=== PATIENT | female | born 1970 | race Hispanic/Latino ===

== ENCOUNTER 2016-07-29 10:57 | Observation (INO) | payer MEDICAID ==
[2016-07-29 11:23] VITALS: O2SAT 98; BMI 29.2
[2016-07-29 12:19] LABS: ADD MANUAL DIFF? NO
--- NOTE | 2016-07-29 12:22 | ED PDOC ---
Arrival/HPI - General Chief Complaint: Lower Extremity Problem/Injury Time Seen by Provider: 07/29/16 11:36 Historian: Patient - History of Present Illness Narrative History of Present Illness (Text): 07/29/16 11:56 Patient is a 45 year old female whose past medical history includes pinched nerve in the neck, presenting to the emergency department with bilateral lower extremity pain and weakness for the past few days. She states she has had difficulty walking. Patient also reports worsening neck pain and headache. Denies back pain, urinary or bowel changes, chest pain, shortness of breath, or other complaints. Time/Duration: < week Symptom Onset: Gradual Symptom Course: Unchanged Modifying Factors (Text): None Associated Symptoms (Text): None Past Medical History - Provider Review Nursing Documentation Reviewed: Yes - Infectious Disease Hx of Infectious Diseases: None - Tetanus Immunization Tetanus Immunization: Unknown - Past Medical History Past Medical History: No Previous - Cardiac Hx Cardiac Disorders: Yes Hx Hypertension: Yes - Pulmonary Hx Respiratory Disorders: Yes Hx Asthma: Yes - Neurological Hx Neurological Disorder: Yes Other/Comment: "nerve damage to neck" - HEENT Hx HEENT Disorder: No - Renal Hx Renal Disorder: No - Endocrine/Metabolic Hx Endocrine Disorders: Yes Hx Diabetes Mellitus Type 2: Yes - Hematological/Oncological Hx Blood Disorders: No - Integumentary Hx Dermatological Disorder: No - Musculoskeletal/Rheumatological Hx Musculoskeletal Disorders: Yes Hx Arthritis: Yes - Gastrointestinal Hx Gastrointestinal Disorders: No - Genitourinary/Gynecological Hx Genitourinary Disorders: No - Psychiatric Hx Psychophysiologic Disorder: No Hx Substance Use: No - Past Surgical History Past Surgical History: No Previous - Surgical History Hx Section: Yes (x2) - Anesthesia Hx Anesthesia: Yes Hx Anesthesia Reactions: No Hx Malignant Hyperthermia: No - Suicidal Assessment Feels Threatened In Home Enviroment: No Family/Social History - Physician Review Nursing Documentation Reviewed: Yes Family/Social History: Unknown Family HX Smoking Status: Light Smoker < 10 Cigarettes Daily Hx Alcohol Use: No Hx Substance Use: No Hx Substance Use Treatment: No Allergies/Home Meds Allergies/Adverse Reactions: Allergies No Known Allergies Allergy (Verified 07/29/16 11:08) Home Medications: Home Meds Medication Instructions Recorded Confirmed Valsartan [Diovan] 320 mg PO DAILY 10/22/13 07/29/16 Zolpidem Tartrate [Ambien] 10 mg PO PRN PRN 03/20/14 07/29/16 metFORMIN ER [glucoPHAGE XR] 500 mg PO DAILY 03/20/14 07/29/16 oxyCODONE/Acetaminophen [Percocet 2 tab PO Q4 11/20/15 07/29/16 5/325 mg Tab] Albuterol HFA [Ventolin HFA 90 1 puff IH PRN PRN 07/29/16 07/29/16 mcg/actuation (8 g)] Review of Systems - Review of Systems Eyes: absent: Vision Changes ENT: absent: Hearing Changes Respiratory: absent: SOB Cardiovascular: absent: Chest Pain Gastrointestinal: absent: Abdominal Pain Genitourinary Female: absent: Dysuria, Frequency, Hematuria Musculoskeletal: Neck Pain (hx pinched nerve), Other (bilateral leg pain). absent: Back Pain Skin: absent: Rash Neurological: Headache, Gait Changes. absent: Dizziness, Facial Droop Endocrine: absent: Diaphoresis, Polydipsia Psychiatric: absent: Depression Physical Exam - Physical Exam Narrative Physical Exam (Text): Head: Atraumatic. Normocephalic. Eyes: PERRL. EOMI. Conjunctivae are not pale. ENT: Mucous membranes are moist and intact. Oropharynx is clear and symmetric. Neck: Supple. There is some pain with rotation of neck, with left sided paracervical spasm noted, no masses palpated, no carotid bruits, able to flex and extend. Cardiovascular: Regular rate. Regular rhythm. No murmurs, rubs, or gallops. Distal pulses are 2+ and symmetric in the lower extremities. Pulmonary/Chest: No evidence of respiratory distress. Clear to auscultation bilaterally. No wheezing, rales or rhonchi. Abdominal: Soft and non-distended. There is no tenderness. No rebound, guarding, or rigidity. No organomegaly. Good bowel sounds. No pulsatile masses. Abdominal wall with soft mobile mass palpated, nontender, nonerythematous. Back: No CVA tenderness. No lower lumbar pain or paraspinal tenderness. No back pain with straight leg testing. Extremities: No edema. No cyanosis. No clubbing. Full range of motion in all extremities. No calf tenderness. Distal pulses intact. There is pain on palpation of bilateral thighs but no edema or erythema. Skin: Skin is warm and dry. No petechiae. No purpura. Neurological: Alert, awake, and oriented. Patient is able to ambulated, but has bilateral drift noted in both lower extremities, unable to hold leg up off of bed for 5 seconds without drifting. No saddle anesthesia. Reflexes symmetic and intact. Psychiatric: Good eye contact. Normal interaction, affect, and behavior. Vital Signs Reviewed: Yes Vital Signs Temp Pulse Resp BP Pulse Ox 07/29/16 15:35 89 18 145/89 98 07/29/16 11:08 99.2 F 95 H 16 148/92 H 98 Temperature: Afebrile Blood Pressure: Normal Pulse: Regular Respiratory Rate: Normal Appearance: Positive for: Well-Appearing, Non-Toxic, Uncomfortable Pain Distress: Mild Mental Status: Positive for: Alert and Oriented X 3 Finger Stick Blood Glucose: 193 Medical Decision Making ED Course and Treatment: Plan: Will obtain CT's of the head and neck, ultrasound of the lower extremities, check basic labs. Prior Visits: Notes and results from previous visits were reviewed. Patient last seen in the ED on 11/20/15 for body aches, cough, congestion, and discharged home. Progress Notes: Patient is noted to have complaints of pain and weakness to legs, although no midline back pain, no fever, no meningeal signs. She has pain to her neck but denies trauma or change in character of pain. There is no weakness noted to the upper extremities. She reports a chronic numbness to her left shoulder for several months, not worse. Lower extremities have intact distal pulses. CPK is unremarkable and there is no muscle erythema or edema. On exam she has no saddle anesthesia, at times there is fine tremor with movement of the lower extremieties but at rest she is able to flex and extend at hip and knee and ankle with good strength and is neurologically intact at rest. PROCEDURE: CT HEAD WITHOUT CONTRAST. Body Welder : Martin Barlow MD Report Date : 07/29/2016 12:32:58 IMPRESSION: Normal CT of the Head. PROCEDURE: CT Cervical Spine without contrast Body Welder : Helena Celis V. Report Date : 07/29/2016 12:51:46 IMPRESSION: Left apophyseal joint hypertrophy encroaching on the left C2-3 and left C3-4 foramina C4-5, C5-6 and C6-7 posterior diffuse disc bulging -no suspect central stenosis. Cervical spine straightening -consistent with spasm and/or positioning. Well corticated ossifications bordering the elongated dens -incomplete inclusion /fusion of ossifications centers bleed most likely. Tiny remote old osseous avulsions are another consideration. No acute fractures or acute destructive lesions noted Bilateral ossifications stylohyoid ligaments as above US Lower Extremities Body Welder : Danny Monge MD Report Date : 07/29/2016 14:36:58 IMPRESSION: No sonographic evidence for deep venous thrombosis in the visualized segments of both lower extremities. Pain medication administered with no improvement, will admit for observation and neurologic consultation to evaluate for possible central etiology of symptoms, currently no abdominal pulsatile masses or incarcerated hernias, no incontinence of urine or stool, afebrile. Treatment plan reviewed with patient and PMD Dr. Rodriguez. 07/29/16 16:48 - Lab Interpretations Lab Results: 07/29/16 12:00 07/29/16 12:00 Lab Results 07/29/16 12:00: Urine Color Yellow, Urine Appearance Clear, Urine pH 5.5, Ur Specific Bolt >= 1.030, Urine Protein Negative, Urine Glucose (UA) 100 H, Urine Ketones Negative, Urine Blood Negative, Urine Nitrate Negative, Urine Bilirubin Negative, Urine Urobilinogen 0.2, Ur Leukocyte Esterase Negative 07/29/16 12:00: PT 10.3, INR 0.95, APTT 28.1 07/29/16 12:00: Sodium 136, Potassium 3.8, Chloride 102, Carbon Dioxide 22, Anion Gap 16, BUN 10, Creatinine 0.6, Est GFR ( Amer) > 60, Est GFR (Non- Af Amer) > 60, Random Glucose 190 H, Calcium 9.5, Total Bilirubin 0.6, AST 24, ALT 28, Alkaline Phosphatase 48, Lactate Dehydrogenase 352, Total Creatine Kinase 76, Troponin I < 0.01, Total Protein 8.2, Albumin 4.7, Globulin 3.5, Albumin/Globulin Ratio 1.3 07/29/16 12:00: WBC 8.6 D, RBC 4.29, Hgb 13.4, Hct 39.5, MCV 92.1, MCH 31.2, MCHC 33.9, RDW 13.4, Plt Count 228, MPV 12.4 H, Gran % 69.9 H, Lymph % (Auto) 23.0, [place] % (Auto) 5.5, Eos % (Auto) 1.2 L, Baso % (Auto) 0.4, Gran # 6.00, Lymph # 2.0, [place] # 0.5, Eos # 0.1, Baso # 0.03 - RAD Interpretation Radiology Orders: 07/29/16 11:45 CERVICAL SPINE W/O CONTRAST [CT] Stat HEAD W/O CONTRAST [CT] Stat 07/29/16 12:04 DUPLEX LOWER EXTRM VEIN BILAT [US] Stat - Medication Orders Current Medication Orders: Discontinued Medications Oxycodone/Acetaminophen (Percocet 5/325 Mg Tab) 1 tab PO STAT STA Stop: 07/29/16 15:09 Last Admin: 07/29/16 15:34 Dose: 1 tab - Scribe Statement The provider has reviewed the documentation as recorded by the Jason Walker Provider Scribe Attestation: All medical record entries made by the Jagdishibcirilo were at my direction and personally dictated by me. I have reviewed the chart and agree that the record accurately reflects my personal performance of the history, physical exam, medical decision making, and the department course for this patient. I have also personally directed, reviewed, and agree with the discharge instructions and disposition. Disposition/Present on Arrival - Present on Arrival Any Indicators Present on Arrival: No History of DVT/PE: No History of Uncontrolled Diabetes: No Urinary Catheter: No History of Decub. Ulcer: No History Surgical Site Infection Following: None - Disposition Have Diagnosis and Disposition been Completed?: Yes Diagnosis: Leg pain, Leg weakness Disposition: HOSPITALIZED Disposition Time: 14:00 Patient Plan: Admission, Observation Condition: FAIR Referrals: Reji Rodriguez MD [Primary Care Provider] - Follow up with primary
[2016-07-29 12:24] LABS: BASO # 0.03 K/mm3 (0.0-2.0); BASO % 0.4 % (0.0-3.0); EOS # 0.1 (0.0-0.7); EOS % 1.2 % (1.5-5.0); GRAN % 69.9 % (50.0-68.0); HEMATOCRIT 39.5 % (36.0-48.0); MEAN CELL VOLUME 92.1 fL (80.0-105.0); MEAN CORPUSCULAR HEMOGLOBIN 31.2 pg (25.0-35.0); MEAN CORPUSCULAR HGB CONC 33.9 g/dl (31.0-37.0); MEAN PLATELET VOLUME 12.4 fl (7.0-11.0); MONO # 0.5 (0.1-0.6); MONO % 5.5 % (1.0-6.0); PLATELET COUNT 228 10^3/uL (120.0-450.0); RED CELL DISTRIBUTION WIDTH 13.4 % (11.5-14.5); WHITE BLOOD COUNT 8.6 10^3/ul (4.5-11.0)
[2016-07-29 12:25] LABS: PH,URINE 5.5 (4.7-8.0); URINE BILIRUBIN NEGATIVE (NEGATIVE); URINE BLOOD NEGATIVE (NEGATIVE); URINE GLUCOSE (UA) 100 mg/dL (NEGATIVE); URINE KETONE NEGATIVE (NEGATIVE); URINE LEUKOCYTE ESTERASE NEGATIVE Leu/uL (NEGATIVE); URINE PROTEIN NEGATIVE mg/dL (<30 mg/dL); URINE UROBILINOGEN 0.2 E.U./dL (<1 E.U./dL)
[2016-07-29 12:29] LABS: URINE APPEARANCE CLEAR (CLEAR); URINE COLOR YELLOW (YELLOW)
[2016-07-29 12:32] LABS: ALB/GLOB RATIO 1.3 (1.1-1.8); ALKALINE PHOSPHATASE 48 U/L (38-133); ALT/SGPT 28 U/L (7-56); AST/SGOT 24 U/L (15-39); BILIRUBIN,TOTAL 0.6 mg/dL (0.2-1.3); BLOOD UREA NITROGEN 10 mg/dL (7-21); CALCIUM 9.5 mg/dL (8.4-10.5); CARBON DIOXIDE 22 mmol/L (21-33); CHLORIDE 102 mmol/L (98-107); GFR AFRICAN-AMERICAN > 60; GLUCOSE,RANDOM 190 mg/dL (70-110); POTASSIUM 3.8 mmol/L (3.6-5.0); SODIUM 136 mmol/L (132-148); TOTAL PROTEIN 8.2 g/dL (5.8-8.3)
--- NOTE | 2016-07-29 12:34 | CT ---
PROCEDURE: CT HEAD WITHOUT CONTRAST. HISTORY: leg weakness COMPARISON: None available. TECHNIQUE: Axial computed tomography images were obtained through the head/brain without intravenous contrast. Radiation dose: Total exam DLP = 700 mGy-cm. This CT exam was performed using one or more of the following dose reduction techniques: Automated exposure control, adjustment of the mA and/or kV according to patient size, and/or use of iterative reconstruction technique. FINDINGS: HEMORRHAGE: No intracranial hemorrhage. BRAIN: No mass effect or edema. No atrophy or chronic microvascular ischemic changes. VENTRICLES: Unremarkable. No hydrocephalus. CALVARIUM: Unremarkable. PARANASAL SINUSES: Unremarkable as visualized. No significant inflammatory changes. MASTOID AIR CELLS: Unremarkable as visualized. No inflammatory changes. OTHER FINDINGS: None. IMPRESSION: Normal CT of the Head.
[2016-07-29 12:36] LABS: INR 0.95 (0.93-1.08); PARTIAL THROMBOPLASTIN TIME 28.1 Seconds (23.7-30.8)
[2016-07-29 12:46] LABS: TROPONIN I < 0.01 ng/mL
--- NOTE | 2016-07-29 12:53 | CT ---
PROCEDURE: CT Cervical Spine without contrast HISTORY: <neck pain, leg weakness> COMPARISON: None available. TECHNIQUE: Axial computed tomography images were obtained of the cervical spine without the use of intravenous contrast. Coronal and sagittal reformatted images were created and reviewed. Radiation dose: Total exam DLP = 641 mGy-cm. This CT exam was performed using one or more of the following dose reduction techniques: Automated exposure control, adjustment of the mA and/or kV according to patient size, and/or use of iterative reconstruction technique. FINDINGS: VERTEBRAE: No fracture. Straightening of the normal cervical lordosis noted. No destructive bony lesion. Well corticated ossifications at the dens tip probably relate fused small ossification centers. There are some associated sclerotic changes of the dense here noted. Conceivably old dens tip avulsions are not excluded these are believe however less likely. DISCS/SPINAL CANAL/NEURAL FORAMINA: No significant central canal stenosis. Left C2-3 and left C3-4 foraminal encroachment by left apophyseal joint osseous hypertrophic arthrosis. . Discs heights are grossly preserved. PARASPINAL SOFT TISSUES: Mild diffuse posterior disc bulging C4-5 and C5-6 and C6-7. Shotty benign-appearing bilateral cervical lymph nodes. No suspicious lymphadenopathy OTHER FINDINGS: Bilateral ossification/ calcification of the stylohyoid ligaments left greater than right -this can be seen with [place] syndrome IMPRESSION: Left apophyseal joint hypertrophy encroaching on the left C2-3 and left C3-4 foramina C4-5, C5-6 and C6-7 posterior diffuse disc bulging -no suspect central stenosis. Cervical spine straightening -consistent with spasm and/or positioning. Well corticated ossifications bordering the elongated dens -incomplete inclusion/fusion of ossifications centers bleed most likely. Tiny remote old osseous avulsions are another consideration. No acute fractures or acute destructive lesions noted Bilateral ossifications stylohyoid ligaments as above
--- NOTE | 2016-07-29 14:38 | US ---
HISTORY: Leg pain and swelling. Evaluate for DVT PHYSICIAN(S): Danny Mcgraw MD. TECHNIQUE: Duplex sonography and color-flow Doppler with graded compression were used to evaluate the deep venous systems of both lower extremities. FINDINGS: The visualized deep venous systems of both lower extremities are sonographically normal and compressible. Normal wave forms and augmentation are seen. There is no sonographic evidence for deep venous thrombosis in the visualized segments of both lower extremities. IMPRESSION: No sonographic evidence for deep venous thrombosis in the visualized segments of both lower extremities.
[2016-07-29] MEDS ORDERED: Oxycodone/Acetaminophen 5/325 mg Tab PO STA (15:08)
[2016-07-29 15:35] VITALS: RESP 18
[2016-07-29 16:44] VITALS: BP 143/79
[2016-07-29] MEDS ORDERED: Oxycodone/Acetaminophen 5/325 mg Tab PO PRN (17:53)
[2016-07-29 18:42] VITALS: TEMP 98.3
[2016-07-29] MEDS ORDERED: Arformoterol 15 mcg/2 ml Inh Sol IH SCH (20:00)
[2016-07-29] MEDS: Budesonide 0.25 mg/2 ml Inhal Susp UD IH SCH (20:12)
[2016-07-29] MEDS: Arformoterol 15 mcg/2 ml Inh Sol IH SCH (20:12)
[2016-07-29 20:13] VITALS: PULSE 80
[2016-07-29] MEDS ORDERED: Pneumococcal 23-Valent Vaccine IM ONE (21:56)
[2016-07-29] MEDS ORDERED: Insulin Reg-LOW-Coverage SC SCH (22:00)
--- NOTE | 2016-07-30 15:05 | MRI ---
PROCEDURE: MR LUMBAR SPINE WITHOUT CONTRAST HISTORY: MRI Lumbar sacral w/o contrast BL leg pain COMPARISON: None available. TECHNIQUE: Multiecho multiplanar sequences were performed through the lumbar spine without the use of intravenous contrast. FINDINGS: Normal lumbar lordosis. Vertebral body heights are preserved. Marrow signal unremarkable. Conus medullaris unremarkable at the level of L1 Paraspinal soft tissues are unremarkable. T12-L1: No disc herniation, spinal canal stenosis or neural foraminal narrowing. L1-2: No disc herniation, spinal canal stenosis or neural foraminal narrowing. L2-3: No disc herniation, spinal canal stenosis or neural foraminal narrowing. L3-4: No disc herniation, spinal canal stenosis or neural foraminal narrowing. L4-5: Moderate facet arthropathy L5-S1: There is a moderate disc bulge with bilateral foraminal stenosis. There is also a small to moderate central disc protrusion seen best on image 8 series 6. OTHER FINDINGS: There is a transitional S1 segment that is partially lumbarized with a small disc space between S1 and S2 IMPRESSION: Moderate disc bulge with bilateral foraminal stenosis and small to moderate central disc protrusion at L5-S1. Moderate facet arthropathy at L4-5
[2016-07-30] MEDS: Arformoterol 15 mcg/2 ml Inh Sol IH SCH (21:02)
[2016-07-30] MEDS: Budesonide 0.25 mg/2 ml Inhal Susp UD IH SCH (21:03)
[2016-07-31 04:51] LABS: ALB/GLOB RATIO 1.2 (1.1-1.8); ALKALINE PHOSPHATASE 51 U/L (38-133); ALT/SGPT 28 U/L (7-56); AST/SGOT 66 U/L (15-39); BLOOD UREA NITROGEN 14 mg/dL (7-21); CALCIUM 9.4 mg/dL (8.4-10.5); CARBON DIOXIDE 25 mmol/L (21-33); CHLORIDE 101 mmol/L (98-107); GFR AFRICAN-AMERICAN > 60; GLUCOSE,RANDOM 107 mg/dL (70-110); POTASSIUM 3.9 mmol/L (3.6-5.0); SODIUM 138 mmol/L (132-148); TOTAL PROTEIN 7.7 g/dL (5.8-8.3)
--- NOTE | 2016-07-31 08:16 | HP ---
MAIN COMPLAINT: A 45-year-old female with history of diabetes, hypertension, chronic neck pain, came into the hospital because of bilateral leg lower extremity pain and weakness for the past few days. She also mentioned she has difficulty walking. She also complained of worsening neck pain and heada ches. HISTORY OF PRESENT ILLNESS: As I mentioned above. Complains of neck pain; back discomfort; lower ex tremity pain, mainly, and associated with bilateral leg weakness. The patient is able to walk around ; however, she did have some pain in both lower extremities and weakness, and that is why she came in to the Emergency Room for further evaluation. The patient does have chronic neck pain. She had an e xcision in the past. PAST MEDICAL HISTORY: Diabetes, hypertension, hypercholesterolemia, chronic neck pain, and neck surg kerry in the past. She does have COPD. ALLERGIES: No known allergies. MEDICATIONS: She does take Ventolin. She takes oxycodone 2 tabs every 4. She takes metformin. She takes Ambien, Diovan 320, and Tessalon Perles SOCIAL HISTORY: The patient does smoke 5-10 cigarettes a day. No alcohol. No other substance abuse . REVIEW OF SYSTEMS: Chronic neck pain, wheezing, cough, short of breath occasionally. PHYSICAL EXAMINATION: VITAL SIGNS: Temperature 98.3, heart rate 76, blood pressure 164/92, respirations 18, saturation 98% on room air. HEAD AND NECK: Normal. No JVD. No thyromegaly. There is a scar in the neck area. CHEST: Clear, good entry. CARDIAC: 1st sound, 2nd sound normal. ABDOMEN: Soft, obese, nontender. EXTREMITIES: There is no edema, and it seems there are no focal deficits; however, there is some mil d difference in power in the right than the , but the patient is able to move both legs. LABORATORY DATA: When the patient came in: White count 8.6, hemoglobin 16.4, hematocrit 39.5, plate lets 228. Chemistry shows sodium 136, potassium 3.8, chloride 102, bicarbonate 22, BUN 10, creatinin e 0.6, blood sugar 190. Liver function test is normal. Troponin is negative. The patient had also CT of the neck when she came in and is noted for hypertrophy of the joint encroaching on the le ft C2-C3 and C3-C4 foramina, also C4-C5 and C6 and C7 there is diffuse disk bulging and the rest of t he cervical spine is straightening, consistent with spasms. Also ossification of the styloid ligamen ts bilaterally. The patient also had a CT of the head, which shows normal CAT scan of the head. IMPRESSION AND PLAN: This is a 45-year-old female with diabetes, hypertension, who came in with weak ness in both lower extremities, seems clinically stable. We will admit the patient. We will get a n euro consult with Dr. Watson. We will review the CT with him. Also, we will get an MRI of the lower extremities and resume all her medications. We will put the patient for observation and will follow up clinically. Reji Rodriguez MD cc: 223 TT: 07/31/2016 00:16:52 tn
--- NOTE | 2016-07-31 08:17 | DS ---
HISTORY OF PRESENT ILLNESS: The patient was admitted for lower extremity weakness. She was maintain ed on her medicines, neuro consult, Dr. Watson. She was consulted to see the patient. The patient w as maintained on her medications; however, she did have an MRI of her lower extremities, which showed moderate disk bulge with bilateral foraminal stenosis, small to moderate central disk protrusion of L5-S1. Moderate facet arthropathy at L4 and L5. The patient also, while in the hospital, she had a venous Doppler of lower extremity, which was negative. PHYSICAL EXAMINATION: GENERAL: The patient was seen today, 07/30/2016 and she was hemodynamically stable, afebrile. VITAL SIGNS: Temperature 98, heart rate 80, blood pressure 140/79, respirations 18, saturation 98%. HEAD AND NECK: There was some decreased range of motion and neck. CHEST: Clear, good entry. CARDIAC: First sound and second sound normal. ABDOMEN: Soft, obese, nontender. EXTREMITIES: No edema. NEUROLOGIC: The patient seems normal. DISCHARGE DIAGNOSES: 1. Bilateral leg pains, etiology unclear. 2. Chronic back pain, chronic with facet arthropathy and disk bulging, which is affecting the L5-S1. 3. Chronic neck pain with joint arthropathy, causing foraminal stenosis. 4. Hypertension. 5. Diabetes type 2. 6. Hypercholesterolemia. 7. Obesity. 8. Chronic insomnia. PLAN: Explained to the patient that she needed to see the neurosurgeon for evaluation and recommenda tions. However, the patient signed against medical advice before seen by a neurologist. She should follow up in office within a week. Reji Rodriguez MD cc: 223 TT: 07/31/2016 02:58:17 tam
[2016-07-31 16:16] LABS: HEMATOCRIT 39.1 % (36.0-48.0); MEAN CELL VOLUME 93.5 fL (80.0-105.0); MEAN CORPUSCULAR HEMOGLOBIN 30.6 pg (25.0-35.0); MEAN CORPUSCULAR HGB CONC 32.7 g/dl (31.0-37.0); MEAN PLATELET VOLUME 12.8 fl (7.0-11.0); RED CELL DISTRIBUTION WIDTH 13.6 % (11.5-14.5); WHITE BLOOD COUNT 7.1 10^3/ul (4.5-11.0)
== END 2016-07-30 15:30 | disposition left against medical advice (07) ==
LOC: ED 10:57 → ERH 15:30 → 3RSO 17:34
PROVIDERS: ADMIT Internal Medicine; ATTEND Internal Medicine
DX: M79.604 Pain in right leg (principal); M79.605 Pain in left leg; M54.9 Dorsalgia, unspecified; M12.9 Arthropathy, unspecified; M54.2 Cervicalgia; I10 Essential (primary) hypertension; E11.9 Type 2 diabetes mellitus without complications; E78.00 Pure hypercholesterolemia, unspecified; E66.9 Obesity, unspecified; D64.9 Anemia, unspecified; F51.04 Psychophysiologic insomnia; F17.210 Nicotine dependence, cigarettes, uncomplicated; J44.9 Chronic obstructive pulmonary disease, unspecified; M46.90 Unspecified inflammatory spondylopathy, site unspecified; M48.00 Spinal stenosis, site unspecified; M51.27 Other intervertebral disc displacement, lumbosacral region
CPT/HCPCS: 36415; 70450; 72125; 72148; 80053; 81003; 82550; 82948; 83615; 84484; 85025; 85027; 85610; 85730; 93970; 94640; 99285; G0378

== ENCOUNTER 2016-11-16 07:14 | Emergency (ER) | payer MEDICAID ==
[2016-11-16 07:29] VITALS: RESP 18; TEMP 98.2; O2SAT 100; BMI 28.5
--- NOTE | 2016-11-16 08:09 | ED PDOC ---
Arrival/HPI - General Chief Complaint: Upper Extremity Problem/Injury Time Seen by Provider: 11/16/16 07:17 - History of Present Illness Narrative History of Present Illness (Text): 11/16/16 07:56 46 year female presents to the emergency room with right anterior forearm numbness. The patient states that she noticed her right anterior forearm feeling tight 4 to 5 days ago. She was attempting to straighten her arm when her muscles felt extremely tight. She states that she felt numbness in the center of her anterior forearm with some tingling in her right hand. Patient states that this has never happened to her before but she was recently in the hospital in July 2016 when it was found that she had 3 bulging discs in her neck. The patient states that her doctors wanted her to have surgery to correct the bulging discs, but she left AMA because of a family emergency with her daughter. The patient states that she takes "percocet 10s" for the pain in her neck which helps with everything. Nothing makes the numbness any better. She feels increased tightness in her anterior forearm when she extends her elbow completely. She denies any recent trauma. Denies f/c, n/v, d/c, sob, cp, lightheadedness, dizziness, blurred vision, double vision, swelling or weakness. (Coco,Ethan) Past Medical History - Provider Review Nursing Documentation Reviewed: Yes - Infectious Disease Hx of Infectious Diseases: None - Tetanus Immunization Tetanus Immunization: Unknown - Past Medical History Past Medical History: No Previous - Cardiac Hx Cardiac Disorders: Yes Hx Hypertension: Yes - Pulmonary Hx Respiratory Disorders: Yes (SMOKED CIGARETTES 4 /D) Hx Asthma: Yes - Neurological Hx Neurological Disorder: Yes (PINCHED NERVE) Other/Comment: "nerve damage to neck" - HEENT Hx HEENT Disorder: Yes Other/Comment: BILATERAL EAR SURGERY - Renal Hx Renal Disorder: No - Endocrine/Metabolic Hx Endocrine Disorders: Yes Hx Diabetes Mellitus Type 2: Yes - Hematological/Oncological Hx Blood Disorders: No - Integumentary Hx Dermatological Disorder: No - Musculoskeletal/Rheumatological Hx Musculoskeletal Disorders: Yes Hx Arthritis: Yes Hx Back Pain: Yes Hx Falls: No Hx Unsteady Gait: Yes Other/Comment: SCIATICA. 3 bulging disks in neck - Gastrointestinal Hx Gastrointestinal Disorders: No - Genitourinary/Gynecological Hx Genitourinary Disorders: Yes (FIBROID UTERUS) Other/Comment: C SECTION X 2 - Psychiatric Hx Psychophysiologic Disorder: No Hx Substance Use: No - Past Surgical History Past Surgical History: No Previous - Surgical History Other/Comment: C SECTION X 2. - Anesthesia Hx Anesthesia: Yes Hx Anesthesia Reactions: No Hx Malignant Hyperthermia: No - Suicidal Assessment Feels Threatened In Home Enviroment: No Family/Social History - Physician Review Nursing Documentation Reviewed: Yes Family/Social History: Unknown Family HX Smoking Status: Light Smoker < 10 Cigarettes Daily Hx Alcohol Use: No Hx Substance Use: No Hx Substance Use Treatment: No Allergies/Home Meds Allergies/Adverse Reactions: Allergies No Known Allergies Allergy (Verified 11/16/16 07:29) Home Medications: Home Meds Medication Instructions Recorded Confirmed Valsartan [Diovan] 320 mg PO DAILY 10/22/13 11/16/16 Zolpidem Tartrate [Ambien] 10 mg PO PRN PRN 03/20/14 11/16/16 metFORMIN ER [glucoPHAGE XR] 500 mg PO DAILY 03/20/14 11/16/16 oxyCODONE/Acetaminophen [Percocet 2 tab PO Q4 11/20/15 11/16/16 5/325 mg Tab] Albuterol HFA [Ventolin HFA 90 1 puff IH PRN PRN 07/29/16 11/16/16 mcg/actuation (8 g)] Gabapentin [Gralise] 300 mg PO TID 11/16/16 11/16/16 Review of Systems - Physician Review All systems were reviewed & negative as marked: Yes - Review of Systems Constitutional: Normal. absent: Fatigue, Fevers Eyes: Normal. absent: Vision Changes ENT: Normal. absent: Sore Throat, Rhinorrhea Respiratory: Normal, Cough (chronic cough (smoker)). absent: SOB, Wheezing Cardiovascular: Normal. absent: Chest Pain, Palpitations, Edema, Calf Pain, Syncope Gastrointestinal: Normal. absent: Abdominal Pain, Constipation, Diarrhea, Nausea, Vomiting Genitourinary Female: Normal. absent: Dysuria, Frequency Musculoskeletal: Other (right forearm tightness, numbness) Skin: Normal, Other (two scratches on her right hand from her kitten ). absent : Rash, Laceration Neurological: Other (numbness in right anterior forearm, some tingling in right hand). absent: Headache, Dizziness, Focal Weakness, Seizure Endocrine: Normal. absent: Diaphoresis Psychiatric: Normal Physical Exam Vital Signs Reviewed: Yes Temperature: Afebrile Blood Pressure: Hypertensive Pulse: Tachycardic (HR of 80 during exam) Respiratory Rate: Normal Appearance: Positive for: Well-Appearing, Non-Toxic, Comfortable Pain Distress: None Mental Status: Positive for: Alert and Oriented X 3 - Systems Exam Head: Present: Atraumatic, Normocephalic Extroacular Muscles: Present: EOMI Conjunctiva: Present: Normal Mouth: Present: Moist Mucous Membranes Nose (External): Present: Atraumatic Neck: Present: Normal Range of Motion, Trachea Midline. No: MIDLINE TENDERNESS , Paraspinal Tenderness, Lymphadenopathy Respiratory/Chest: Present: Clear to Auscultation. No: Respiratory Distress, Accessory Muscle Use, Wheezes, Rales, Rhonchi Cardiovascular: Present: Regular Rate and Rhythm, Normal S1, S2 Abdomen: Present: Normal Bowel Sounds. No: Tenderness, Distention, Peritoneal Signs Back: Present: Normal Inspection. No: CVA Tenderness, Midline Tenderness, Paraspinal Tenderness Upper Extremity: Present: Normal Inspection, Normal ROM, NORMAL PULSES, Neurovascularly Intact, Capillary Refill < 2s, Other (5/5 strength testing b/l. Patient reports decreased sensation to light touch in center of anterior forearm on right, but normal sensation to medial/laterial/posterier forearm on right. Equal sensation to light touch in hands b/l ). No: Cyanosis, Edema, Tenderness, Swelling, Erythema, Deformity Neurological: Present: GCS=15 Skin: Present: Warm, Dry, Normal Color, Other (2 scratches on right hand from cat (occurred 3 days ago) ). No: Diaphoretic, Hot, Cold, Laceration, Abscess Psychiatric: Present: Alert, Oriented x 3, Normal Insight, Normal Concentration Medical Decision Making ED Course and Treatment: 11/16/16 08:17 Right anterior forearm numbness - previous Cervical Neck CT on 07/29/2016 -Left apophyseal joint hypertrophy encroaching on the left C2-3 and left C3-4 foramina. C4-5, C5-6 and C6-7 posterior diffuse disc bulging -no suspect central stenosis. Cervical spine straightening -consistent with spasm and/or positioning. Well corticated ossifications bordering the elongated dens -incomplete inclusion/fusion of ossifications centers bleed most likely. Tiny remote old osseous avulsions are another consideration. No acute fractures or acute destructive lesions noted. Bilateral ossifications stylohyoid ligaments as above. - reassurance given, believed to be 2/2 known bulging discs in Cervical Spine. Patient is instructed to follow up with her PMD. Dispo: Home with no medications. Follow up with PMD. (Ethan Sepulveda) Seen and examined with resident. 46 y/o F p/w arm tightness with extension. Normal motor strength, FROM intact, sensation to light touch intact. (Alban Marie) Disposition/Present on Arrival - Present on Arrival Any Indicators Present on Arrival: No History of DVT/PE: No History of Uncontrolled Diabetes: No Urinary Catheter: No History of Decub. Ulcer: No History Surgical Site Infection Following: None - Disposition Have Diagnosis and Disposition been Completed?: Yes Disposition Time: 08:20 Patient Plan: Discharge - Disposition Diagnosis: Arm pain Diagnosis: (Ruled Out): Bulging discs, Cervical radiculopathy Disposition: HOME/ ROUTINE Condition: GOOD Discharge Instructions (ExitCare): Arm Pain (ED) Referrals: Reji Rodriguez MD [Primary Care Provider] - Follow up with primary Forms: Health: [employer] (Kazakh)
[2016-11-16 08:54] VITALS: BP 118/75; PULSE 77
== END 2016-11-16 08:53 | disposition home or self-care (01) ==
LOC: ED 07:14
DX: M79.601 Pain in right arm (principal)

== ENCOUNTER 2017-08-09 08:28 | Emergency (ER) | payer MEDICAID, OTHER ==
[2017-08-09 08:29] VITALS: BMI 28.5
[2017-08-09 08:48] VITALS: RESP 18; TEMP 99.2
[2017-08-09] MEDS ORDERED: Oxycodone/Acetaminophen 10/325 mg Tab PO STA (08:59)
--- NOTE | 2017-08-09 09:04 | ED PDOC ---
Arrival/HPI - General Chief Complaint: Back Pain Time Seen by Provider: 08/09/17 08:42 Historian: Patient - History of Present Illness Narrative History of Present Illness (Text): you were treated in the ED today for hx of chronic low back pain with MRI lumbar spine done 07/30/16 with moderate disc bulge with bilateral foraminal stenosis with small to moderate central disc protrusion Lumbar 5 - Sacral 1/ moderate facet arthropathy at lumbar 4-5 with recommendation for neurosurgery evaluation and now coming for recurrent pain flare-up which radiates down both lower legs but otherwise without any head injury/neck pain/loss of consciousness/nausea/vomiting/headache/dizziness/difficulty breathing/chest pain /abdomen pain/numbness/tingling/loss of limb or bowel or bladder function/pain with urination. Time/Duration: Other (2 days) Symptom Onset: Gradual Symptom Course: Intermittent Quality: Aching Severity Level: 4 Activities at Onset: Rest Context: Sitting Past Medical History - Provider Review Nursing Documentation Reviewed: Yes - Travel History Have you recently traveled outside [place] w/in the past 3 mons?: No - Infectious Disease Hx of Infectious Diseases: None - Tetanus Immunization Tetanus Immunization: Unknown - Reproductive Menopause: No - Past Medical History Past Medical History: No Previous - Cardiac Hx Cardiac Disorders: Yes Hx Hypertension: Yes - Pulmonary Hx Respiratory Disorders: Yes (SMOKED CIGARETTES 4 /D) Hx Asthma: Yes - Neurological Hx Neurological Disorder: Yes (PINCHED NERVE) Other/Comment: "nerve damage to neck" - HEENT Hx HEENT Disorder: Yes Other/Comment: BILATERAL EAR SURGERY - Renal Hx Renal Disorder: No - Endocrine/Metabolic Hx Endocrine Disorders: Yes Hx Diabetes Mellitus Type 2: Yes - Hematological/Oncological Hx Blood Disorders: No - Integumentary Hx Dermatological Disorder: No - Musculoskeletal/Rheumatological Hx Musculoskeletal Disorders: Yes Hx Arthritis: Yes Hx Back Pain: Yes Hx Falls: No Hx Unsteady Gait: Yes Other/Comment: SCIATICA. 3 bulging disks in neck - Gastrointestinal Hx Gastrointestinal Disorders: No - Genitourinary/Gynecological Hx Genitourinary Disorders: Yes (FIBROID UTERUS) Other/Comment: C SECTION X 2 - Psychiatric Hx Psychophysiologic Disorder: No Hx Substance Use: No - Past Surgical History Past Surgical History: No Previous - Surgical History Other/Comment: C SECTION X 2. - Anesthesia Hx Anesthesia: Yes Hx Anesthesia Reactions: No Hx Malignant Hyperthermia: No - Suicidal Assessment Feels Threatened In Home Enviroment: No Family/Social History - Physician Review Nursing Documentation Reviewed: Yes Family/Social History: Unknown Family HX Smoking Status: Light Smoker < 10 Cigarettes Daily Hx Alcohol Use: No Hx Substance Use: No Hx Substance Use Treatment: No Allergies/Home Meds Allergies/Adverse Reactions: Allergies No Known Allergies Allergy (Verified 11/16/16 07:29) Home Medications: Home Meds Medication Instructions Recorded Confirmed Valsartan [Diovan] 320 mg PO DAILY 10/22/13 11/16/16 Zolpidem Tartrate [Ambien] 10 mg PO PRN PRN 03/20/14 11/16/16 metFORMIN ER [glucoPHAGE XR] 500 mg PO DAILY 03/20/14 11/16/16 oxyCODONE/Acetaminophen [Percocet 2 tab PO Q4 11/20/15 11/16/16 5/325 mg Tab] Albuterol HFA [Ventolin HFA 90 1 puff IH PRN PRN 07/29/16 11/16/16 mcg/actuation (8 g)] Gabapentin [Gralise] 300 mg PO TID 11/16/16 11/16/16 Review of Systems - Review of Systems Constitutional: Normal Eyes: Normal ENT: Normal Respiratory: Normal Cardiovascular: Normal Gastrointestinal: Normal Genitourinary Female: Normal Musculoskeletal: Back Pain Skin: Normal Neurological: Normal Endocrine: Normal Hemo/Lymphatic: Normal Psychiatric: Normal Physical Exam Vital Signs Reviewed: Yes Vital Signs Temp Pulse Resp BP Pulse Ox 08/09/17 09:27 89 18 136/84 100 08/09/17 08:42 99.2 F 102 H 18 149/85 98 Temperature: Afebrile Blood Pressure: Hypertensive Pulse: Regular Respiratory Rate: Normal Appearance: Positive for: Well-Appearing, Non-Toxic, Comfortable Pain Distress: None Mental Status: Positive for: Alert and Oriented X 3 - Systems Exam Head: Present: Atraumatic, Normocephalic Pupils: Present: PERRL Extroacular Muscles: Present: EOMI Conjunctiva: Present: Normal Ears: Present: Normal Mouth: Present: Moist Mucous Membranes Pharnyx: Present: Normal Nose (External): Present: Atraumatic Nose (Internal): Present: Normal Inspection Neck: Present: Normal Range of Motion Respiratory/Chest: Present: Clear to Auscultation, Good Air Exchange Cardiovascular: Present: Regular Rate and Rhythm Abdomen: Present: Other (no pulsatile masses). No: Tenderness, Distention, Normal Bowel Sounds, Peritoneal Signs, Rebound, Guarding, McBurney's Point Tender, Rovsing's Sign Present, Hernias, Feeding Tubes, Ostomy Tubes, Mass/ Organomegaly, Scars Back: Present: Other (minimal lumbar discomfort adjacent right paraspinal but no spinal tenderness no c-t spinal or paraspinal tenderness. no redness. no fluctuance.) Upper Extremity: Present: Normal Inspection Lower Extremity: Present: Normal Inspection Neurological: Present: GCS=15, CN II-XII Intact, Speech Normal, Motor Func Grossly Intact Skin: Present: Warm, Normal Color Psychiatric: Present: Alert, Oriented x 3, Normal Insight, Normal Concentration Medical Decision Making ED Course and Treatment: you were treated in the ED today for hx of chronic low back pain with MRI lumbar spine done 07/30/16 with moderate disc bulge with bilateral foraminal stenosis with small to moderate central disc protrusion Lumbar 5 - Sacral 1/ moderate facet arthropathy at lumbar 4-5 with recommendation for neurosurgery evaluation and now coming for recurrent pain flare-up which radiates down both lower legs but otherwise without any head injury/neck pain/loss of consciousness/nausea/vomiting/headache/dizziness/difficulty breathing/chest pain /abdomen pain/numbness/tingling/loss of limb or bowel or bladder function/pain with urination. You were otherwise breathing easily, smiling and talking easily and laughing, good strength/sensation, walking easily, clear lungs, no abdomen tenderness without any pulsatile masses, mild lumbar right muscle area discomfort without any spinal tenderness or any redness, no fever temp 99.2, mildly fast heart rate 102 related to pain and repeat 89, stable breathing rate 18, excellent oxygen level 98% room air, elevated blood pressure 149/85 which we recommend repeat in 2-3 days primary care office to determine further treatment, percocet, observation done in the ED with improvement, had a long discussion for further care/observation in the hospital/lab tests/radiology imaging but you refused and cautioned for complications/limb loss and you stated you came for pain control only at this time due to running out of your percocet prescription and stated will followup primary care tomorrow, counselled to monitor symptoms/heating pad to lumbar area for relief and thus you wanted to go home with family/safe ride as you stated you weren't driving. 1. Recommend ___motrin as directed for mild pain. 2. Recommend percocet as directed for breakthrough pain and don't work/drive/drink alcohol when using. 3. Recommend follow-up primary care 1 day to review symptoms, referral to spine clinic/neurosurgery to review your symptoms. 4. If any worsening pain, fever, chills, nausea, vomiting, difficulty breathing, numbness, loss of limb function , pain with urination or any medical condition then return to the ED. 08/09/17 09:09 08/09/17 09:12 08/09/17 09:37 Reassessment Condition: Re-examined, Improved - Medication Orders Current Medication Orders: Discontinued Medications Oxycodone/Acetaminophen (Percocet 10/325 Mg Tab) 1 tab PO STAT STA Stop: 08/09/17 09:00 Last Admin: 08/09/17 09:27 Dose: 1 tab [facility] Pain Assessment Document 08/09/17 09:27 SHANAE (Rec: 08/09/17 09:27 SHANAE [id number]) Pain Reassessment Is this a pain reassessment? No Sleep Is patient sleeping during reassessment? No Presence of Pain Presence of Pain Yes Disposition/Present on Arrival - Present on Arrival Any Indicators Present on Arrival: No History of DVT/PE: No History of Uncontrolled Diabetes: No Urinary Catheter: No History of Decub. Ulcer: No History Surgical Site Infection Following: None - Disposition Have Diagnosis and Disposition been Completed?: Yes Diagnosis: Back pain Disposition: HOME/ ROUTINE Disposition Time: 09:09 Patient Problems: Current Active Problems Problem Status Onset Back pain Acute Condition: IMPROVED Additional Instructions: you were treated in the ED today for hx of chronic low back pain with MRI lumbar spine done 07/30/16 with moderate disc bulge with bilateral foraminal stenosis with small to moderate central disc protrusion Lumbar 5 - Sacral 1/ moderate facet arthropathy at lumbar 4-5 with recommendation for neurosurgery evaluation and now coming for recurrent pain flare-up which radiates down both lower legs but otherwise without any head injury/neck pain/loss of consciousness/nausea/vomiting/headache/dizziness/difficulty breathing/chest pain /abdomen pain/numbness/tingling/loss of limb or bowel or bladder function/pain with urination. You were otherwise breathing easily, smiling and talking easily and laughing, good strength/sensation, walking easily, clear lungs, no abdomen tenderness without any pulsatile masses, mild lumbar right muscle area discomfort without any spinal tenderness or any redness, no fever temp 99.2, mildly fast heart rate 102 related to pain and repeat 89, stable breathing rate 18, excellent oxygen level 98% room air, elevated blood pressure 149/85 which we recommend repeat in 2-3 days primary care office to determine further treatment, percocet, observation done in the ED with improvement, had a long discussion for further care/observation in the hospital/lab tests/radiology imaging but you refused and cautioned for complications/limb loss and you stated you came for pain control only at this time due to running out of your percocet prescription and stated will followup primary care tomorrow, counselled to monitor symptoms/heating pad to lumbar area for relief and thus you wanted to go home with family/safe ride as you stated you weren't driving. 1. Recommend ___motrin as directed for mild pain. 2. Recommend percocet as directed for breakthrough pain and don't work/drive/drink alcohol when using. 3. Recommend follow-up primary care 1 day to review symptoms, referral to spine clinic/neurosurgery to review your symptoms. 4. If any worsening pain, fever, chills, nausea, vomiting, difficulty breathing, numbness, loss of limb function , pain with urination or any medical condition then return to the ED. Prescriptions: oxyCODONE/Acetaminophen [Percocet 5/325 mg Tab] 1 ea PO Q8 PRN 2 Days #6 tab PRN Reason: breakthrough pain Forms: [facility] ([place]), WORK NOTE
[2017-08-09 09:28] VITALS: BP 136/84; PULSE 89; O2SAT 100
== END 2017-08-09 09:49 | disposition home or self-care (01) ==
LOC: ED 08:28
DX: M54.5 Low back pain (principal); E11.9 Type 2 diabetes mellitus without complications; I10 Essential (primary) hypertension; F17.210 Nicotine dependence, cigarettes, uncomplicated

== ENCOUNTER 2017-12-15 09:28 | Emergency (ER) | payer MEDICAID ==
[2017-12-15 09:29] VITALS: BMI 28.5
[2017-12-15 09:36] VITALS: RESP 18; TEMP 98.3
--- NOTE | 2017-12-15 10:05 | ED PDOC ---
Arrival/HPI - General Chief Complaint: Upper Extremity Problem/Injury Time Seen by Provider: 12/15/17 09:36 Historian: Patient - History of Present Illness Narrative History of Present Illness (Text): 12/15/17 09:58 47-year-old female presents today with a 5 week history of right upper arm pain. Patient states she's been having pain in the right arm for the past 5 weeks. She denies numbness weakness or tingling in the extremities. She is complaining of pain in the humerus. pt states she has been taking ibuprofen and bengay without improvement. pt denies fever/chills. denies trauma or injury. no cp or sob. no other complaints. Past Medical History - Provider Review Nursing Documentation Reviewed: Yes - Travel History Have you recently traveled outside [place] w/in the past 3 mons?: No - Infectious Disease Hx of Infectious Diseases: None - Tetanus Immunization Tetanus Immunization: Unknown - Past Medical History Past Medical History: No Previous - Cardiac Hx Cardiac Disorders: Yes Hx Hypertension: Yes - Pulmonary Hx Respiratory Disorders: Yes (SMOKED CIGARETTES 4 /D) Hx Asthma: Yes - Neurological Hx Neurological Disorder: Yes (PINCHED NERVE) Other/Comment: "nerve damage to neck" - HEENT Hx HEENT Disorder: Yes Other/Comment: BILATERAL EAR SURGERY - Renal Hx Renal Disorder: No - Endocrine/Metabolic Hx Endocrine Disorders: Yes Hx Diabetes Mellitus Type 2: Yes - Hematological/Oncological Hx Blood Disorders: No - Integumentary Hx Dermatological Disorder: No - Musculoskeletal/Rheumatological Hx Musculoskeletal Disorders: Yes Hx Arthritis: Yes Hx Back Pain: Yes Hx Falls: No Hx Unsteady Gait: Yes Other/Comment: SCIATICA. 3 bulging disks in neck - Gastrointestinal Hx Gastrointestinal Disorders: No - Genitourinary/Gynecological Hx Genitourinary Disorders: Yes (FIBROID UTERUS) Other/Comment: C SECTION X 2 - Psychiatric Hx Psychophysiologic Disorder: No Hx Substance Use: No - Past Surgical History Past Surgical History: No Previous - Surgical History Hx Section: Yes (x2) - Anesthesia Hx Anesthesia: Yes Hx Anesthesia Reactions: No Hx Malignant Hyperthermia: No - Suicidal Assessment Feels Threatened In Home Enviroment: No Family/Social History - Physician Review Nursing Documentation Reviewed: Yes Family/Social History: Unknown Family HX Smoking Status: Light Smoker < 10 Cigarettes Daily Hx Alcohol Use: No Hx Substance Use: No Hx Substance Use Treatment: No Allergies/Home Meds Allergies/Adverse Reactions: Allergies No Known Allergies Allergy (Verified 11/16/16 07:29) Home Medications: Home Meds Medication Instructions Recorded Confirmed Albuterol 0.083% [Albuterol 0.083% 1 vial IH QID 12/15/17 12/15/17 Inhal Naida (2.5 mg/3 ml) UD] Albuterol HFA [Ventolin HFA 90 2 puff IH QID 12/15/17 12/15/17 mcg/actuation (8 g)] Alogliptin Benzoate [Alogliptin] 1 tab PO DAILY 12/15/17 12/15/17 Aspirin [Aspirin Chewable] 1 tab PO DAILY 12/15/17 12/15/17 Benzonatate [Tessalon Perles] 2 cap PO BID 12/15/17 12/15/17 Empagliflozin [Jardiance] 1 tab PO DAILY 12/15/17 12/15/17 Ergocalciferol [Drisdol 50,000 1 cap PO Q7D 12/15/17 12/15/17 Intl Units Cap] Famotidine [Pepcid] 1 tab PO DAILY 12/15/17 12/15/17 Gabapentin [Neurontin] 1 cap PO BID 12/15/17 12/15/17 Hydrochlorothiazide [Microzide] 25 mg PO DAILY 12/15/17 12/15/17 Irbesartan [Avapro] 1 tab PO DAILY 12/15/17 12/15/17 Multivitamin [Multivitamins] 1 tab PO DAILY 12/15/17 12/15/17 Oxycodone HCl/Acetaminophen 1 tab PO DAILY PRN 12/15/17 12/15/17 [Percocet 10-325 mg Tablet] Promethazine DM [Phenergan DM 1 tsp PO QID 12/15/17 12/15/17 Syrup] Review of Systems - Review of Systems Constitutional: absent: Fatigue, Fevers Respiratory: absent: SOB, Cough Cardiovascular: absent: Chest Pain, Palpitations Gastrointestinal: absent: Abdominal Pain, Vomiting Genitourinary Female: absent: Dysuria Musculoskeletal: Arthralgias. absent: Back Pain, Neck Pain Skin: absent: Rash, Pruritis Neurological: absent: Headache, Dizziness Psychiatric: absent: Anxiety, Depression Physical Exam Vital Signs Reviewed: Yes Vital Signs Temp Pulse Resp BP Pulse Ox 12/15/17 09:36 98.3 F 99 H 18 133/90 96 Temperature: Afebrile Blood Pressure: Normal Pulse: Regular Respiratory Rate: Normal Appearance: Positive for: Well-Appearing, Non-Toxic, Comfortable Pain Distress: None Mental Status: Positive for: Alert and Oriented X 3 - Systems Exam Head: Present: Atraumatic Mouth: Present: Moist Mucous Membranes Neck: Present: Normal Range of Motion, Trachea Midline. No: MIDLINE TENDERNESS, Paraspinal Tenderness Respiratory/Chest: Present: Clear to Auscultation Cardiovascular: Present: Regular Rate and Rhythm Back: Present: Normal Inspection. No: Midline Tenderness, Paraspinal Tenderness Upper Extremity: Present: Normal ROM, NORMAL PULSES, Tenderness (+ minimal tenderness over humerus; no edema, no erythema; no ecchymosis; full rom or arm with pain on abduction of shoulder. ), Neurovascularly Intact, Capillary Refill < 2s. No: Temperature Abnormalties, Deformity Lower Extremity: Present: Normal Inspection Neurological: Present: GCS=15, Speech Normal Skin: Present: Warm, Dry, Normal Color. No: Rashes Psychiatric: Present: Alert, Oriented x 3 Medical Decision Making ED Course and Treatment: 12/15/17 10:42 Patient nontoxic well-appearing in no distress with stable vital signs X-rays of the right humerus;' no fracture xray of right shoulder; no fracture duplex right arm; no dvt verbal report from [employer] tech toradol IM pt with 5 week hx of right arm pain; [employer] aware website sites shows frequent Percocet prescriptions last prescription on 11/23/2017 good for her 30 day supply. When I asked the patient what medications she takes at home she states that she only takes Motrin and BenGay. I asked the patient again multiple times and she denied any other pain medications besides Motrin and BenGay. advised the patient that I cannot give her Percocet for pain as she already has a prior prescription. I discussed all results with patient advised to followup with the orthopedist and primary care physician within the next 2 days. Return if symptoms worsen persist or new symptoms develop Patient verbalizes understanding of discharge instructions and need for immediate followup. all aspects of this case were discussed the attending of record. Impression: Arm pain Motrin every 6 hours as needed for pain Followup with the orthopedist within the next 2 days Followup with primary care physician within the next 2 days Return if symptoms worsen,persist, or if new concerning symptoms develop - RAD Interpretation Radiology Orders: 12/15/17 09:53 HUMERUS RIGHT [RAD] Stat SHOULDER RIGHT [RAD] Stat DUPLEX LOWER EXTRM VEIN RIGHT [US] Stat Disposition/Present on Arrival - Present on Arrival Any Indicators Present on Arrival: No History of DVT/PE: No History of Uncontrolled Diabetes: No Urinary Catheter: No History of Decub. Ulcer: No History Surgical Site Infection Following: None - Disposition Have Diagnosis and Disposition been Completed?: Yes Diagnosis: Arm pain Disposition: HOME/ ROUTINE Disposition Time: 10:26 Patient Plan: Discharge Condition: GOOD Discharge Instructions (ExitCare): Muscle and Bone Pain (DC) Additional Instructions: motrin every 6 hours as needed for pain follow up with the orthopedist within the next 2 days follow up with your primary care physician within the next 2 days return if symptoms worsen,persist or if new symptoms develop. Prescriptions: Ibuprofen [Motrin] 600 mg PO Q6H PRN #20 tab PRN Reason: pain/fever reduction Referrals: Reji Rodriguez MD [Family Provider] - Follow up with primary Rene Rivera MD [Staff Provider] - Follow up with primary Sujata Mcqueen MD [Staff Provider] - Follow up with primary Forms: [employer] [facility] (Hebrew), WORK NOTE
[2017-12-15 12:07] VITALS: BP 128/74; PULSE 78; O2SAT 97
--- NOTE | 2017-12-15 13:20 | RAD ---
Date of service: 12/15/2017 PROCEDURE: Radiographs of the Right Shoulder HISTORY: Right arm Pain. No history of recent/ related trauma provided 5 weeks duration. COMPARISON: No prior. FINDINGS: BONES: Normal. No fracture. JOINTS: Preserved glenohumeral relationship, acromioclavicular degenerative change: Mild SOFT TISSUES: Normal. OTHER FINDINGS: None. IMPRESSION: No significant or acute findings to account for/ related to the clinical presentation. Additional benign and/or incidental findings described above.
--- NOTE | 2017-12-15 13:20 | RAD ---
PROCEDURE: Radiographs of the right humerus. HISTORY: arm pain x 5 weeks COMPARISON: None. FINDINGS: BONES: Normal. No fracture or focal lesion. SOFT TISSUES: Normal. OTHER FINDINGS: None. IMPRESSION: Normal radiographs of right humerus.
--- NOTE | 2017-12-15 15:11 | US ---
PROCEDURE: Right upper extremity venous US CLINICAL HISTORY: Arm pain and swelling Evaluate for deep venous thrombosis. PHYSICIAN(S): Danny Mcgraw M.D FINDINGS: The visualized rightinternal jugular vein is small and post lytic. No acute DVT is seen. The visualized segments of the right subclavian vein are patent with normal waveforms. No sonographic evidence of obstruction or thrombosis is seen. The visualized deep venous system of the proximal right upper extremity is sonographically normal and compressible. IMPRESSION: 1. No sonographic evidence for acute deep venous thrombosis in the visualized segments of the right upper extremity.
== END 2017-12-15 12:07 | disposition home or self-care (01) ==
LOC: ED 09:28
DX: M79.601 Pain in right arm (principal); I10 Essential (primary) hypertension; F17.210 Nicotine dependence, cigarettes, uncomplicated
CPT/HCPCS: 73030; 73060; 93971; 96372; 99284; J1885

== ENCOUNTER 2018-02-20 07:28 | Inpatient (IN) | payer MEDICAID ==
--- NOTE | 2018-02-20 08:04 | ED PDOC ---
Arrival/HPI - General Chief Complaint: Abdominal Pain Time Seen by Provider: 02/20/18 07:41 Historian: Patient - History of Present Illness Narrative History of Present Illness (Text): 02/20/18 07:58 47 yr old female w/ hx of diabetes, DUB, p/w abdominal pain. Pt notes abdominal pain began 3-4 days ago, sharp stabbing, RUQ / RLQ. No nausea or vomiting. no CP or shortness of breath. No constipation or diarrhea, last BM was this morning, normal, no dark or boody stool. no urinary complaints. No trauma or fall. No headache, nausea or vomtiting. No chills or night sweats. No chest pain or sob. No new medications or diet. Pt notes that roughly 1 week prior she was at [facility] for vaginal bleeding for which she had a negative US and dx w/ dysfunctional uterine bleeding for which she knew about already. She notes that she is spotting currently, much improved from previous when she had was passing clots. No other complaints. 02/20/18 08:05 Past Medical History - Infectious Disease Hx of Infectious Diseases: None - Tetanus Immunization Tetanus Immunization: Unknown - Past Medical History Past Medical History: No Previous - Cardiac Hx Cardiac Disorders: Yes Hx Hypertension: Yes - Pulmonary Hx Respiratory Disorders: Yes (SMOKED CIGARETTES 4 /D) Hx Asthma: Yes - Neurological Hx Neurological Disorder: Yes (PINCHED NERVE) Other/Comment: "nerve damage to neck" - HEENT Hx HEENT Disorder: Yes Other/Comment: BILATERAL EAR SURGERY - Renal Hx Renal Disorder: No - Endocrine/Metabolic Hx Endocrine Disorders: Yes Hx Diabetes Mellitus Type 2: Yes - Hematological/Oncological Hx Blood Disorders: No - Integumentary Hx Dermatological Disorder: No - Musculoskeletal/Rheumatological Hx Musculoskeletal Disorders: Yes Hx Arthritis: Yes Hx Back Pain: Yes Hx Falls: No Hx Unsteady Gait: Yes Other/Comment: SCIATICA. 3 bulging disks in neck - Gastrointestinal Hx Gastrointestinal Disorders: No - Genitourinary/Gynecological Hx Genitourinary Disorders: Yes (FIBROID UTERUS) Other/Comment: C SECTION X 2 - Psychiatric Hx Psychophysiologic Disorder: No Hx Substance Use: No - Past Surgical History Past Surgical History: No Previous - Surgical History Hx Section: Yes (x2) - Anesthesia Hx Anesthesia: Yes Hx Anesthesia Reactions: No Hx Malignant Hyperthermia: No - Suicidal Assessment Feels Threatened In Home Enviroment: No Family/Social History Family/Social History: Unknown Family HX Smoking Status: Light Smoker < 10 Cigarettes Daily Hx Alcohol Use: No Hx Substance Use: No Hx Substance Use Treatment: No Allergies/Home Meds Allergies/Adverse Reactions: Allergies No Known Allergies Allergy (Verified 02/20/18 07:45) Home Medications: Home Meds Medication Instructions Recorded Confirmed Albuterol 0.083% [Albuterol 0.083% 1 vial IH QID 12/15/17 12/15/17 Inhal Naida (2.5 mg/3 ml) UD] Albuterol HFA [Ventolin HFA 90 2 puff IH QID 12/15/17 12/15/17 mcg/actuation (8 g)] Alogliptin Benzoate [Alogliptin] 1 tab PO DAILY 12/15/17 12/15/17 Aspirin [Aspirin Chewable] 1 tab PO DAILY 12/15/17 12/15/17 Benzonatate [Tessalon Perles] 2 cap PO BID 12/15/17 12/15/17 Empagliflozin [Jardiance] 1 tab PO DAILY 12/15/17 12/15/17 Ergocalciferol [Drisdol 50,000 1 cap PO Q7D 12/15/17 12/15/17 Intl Units Cap] Famotidine [Pepcid] 1 tab PO DAILY 12/15/17 12/15/17 Gabapentin [Neurontin] 1 cap PO BID 12/15/17 12/15/17 Hydrochlorothiazide [Microzide] 25 mg PO DAILY 12/15/17 12/15/17 Irbesartan [Avapro] 1 tab PO DAILY 12/15/17 12/15/17 Multivitamin [Multivitamins] 1 tab PO DAILY 12/15/17 12/15/17 Oxycodone HCl/Acetaminophen 1 tab PO DAILY PRN 12/15/17 12/15/17 [Percocet 10-325 mg Tablet] Promethazine DM [Phenergan DM 1 tsp PO QID 12/15/17 12/15/17 Syrup] Review of Systems - Review of Systems Constitutional: Fevers (subjective, overnight x3d). absent: Fatigue, Weight C hange Eyes: absent: Vision Changes, Photophobia ENT: absent: Hearing Changes, Tinnitus Respiratory: absent: SOB, Cough, Sputum Cardiovascular: absent: Chest Pain, Palpitations, Edema, Calf Pain, Syncope Gastrointestinal: Abdominal Pain. absent: Stool Changes, Constipation, Diarrhea, Nausea, Vomiting, Appetite Changes, Hematochezia, Hematemesis, Anorexia Genitourinary Female: absent: Dysuria, Frequency, Hematuria Musculoskeletal: absent: Arthralgias, Back Pain, Neck Pain Skin: absent: Rash, Pruritis Neurological: absent: Headache, Dizziness Physical Exam Vital Signs Temp Pulse Resp BP Pulse Ox 02/20/18 07:36 98.2 F 92 H 18 136/83 97 Temperature: Afebrile Blood Pressure: Normal Pulse: Regular Respiratory Rate: Normal Appearance: Positive for: Well-Appearing Pain Distress: None Mental Status: Positive for: Alert and Oriented X 3 - Systems Exam Head: Present: Atraumatic, Normocephalic Pupils: Present: PERRL Extroacular Muscles: Present: EOMI Conjunctiva: Present: Normal Ears: Present: Normal Mouth: Present: Moist Mucous Membranes Pharnyx: Present: Normal. No: ERYTHEMA, EXUDATE Nose (External): Present: Atraumatic Nose (Internal): Present: Normal Inspection Neck: Present: Normal Range of Motion Respiratory/Chest: Present: Clear to Auscultation, Good Air Exchange. No: Respiratory Distress, Accessory Muscle Use, Wheezes, Decreased Breath Sounds, Rales, Retracting, Rhonchi, Tachypneic Cardiovascular: Present: Regular Rate and Rhythm, Normal S1, S2. No: Murmurs Abdomen: Present: Tenderness (rlq. ruq). No: Distention, Normal Bowel Sounds Rectal: No: Occult Blood Back: Present: Normal Inspection. No: CVA Tenderness Upper Extremity: Present: Normal Inspection, NORMAL PULSES, Capillary Refill < 2s. No: Edema Lower Extremity: Present: Normal Inspection, NORMAL PULSES, Capillary Refill < 2 s. No: Edema Neurological: Present: GCS=15, CN II-XII Intact, Speech Normal Skin: Present: Warm, Dry Psychiatric: Present: Alert, Oriented x 3 Medical Decision Making ED Course and Treatment: 02/20/18 08:08 47 yr old female w/ hx of hernia, DM2, DUB p/w abdominal pain. Given RLQ and RUQ pain will seek CT and Ultrasound. Improved DUB per pt. Does not feel week. No shortness of breath or CP. EK. NSR, No stemi 02/20/18 10:12 Appreciate consult w/ Dr. Palacio (RADS): Appendicits. pt NPO. Pain meds ordered No elevated WBC. Consulted cement mason rn neurosurgical: to see pt. 02/20/2018 09:30 Gallbladder Ultrasound IMPRESSION: No acute findings. Dictator: Martin Palacio MD 02/20/2018 10:06 Abd/Pelvis CT IMPRESSION: The appendix is mildly dilated measuring 12 mm. There is a thickened enhancing wall. Findings are consistent with early appendicitis. Only a short segment of the appendix is visualized. The distal appendix is contiguous with the right ovary which contains a 26 mm cyst. Dictator: Martin Newman MD 02/20/18 11:42 appreciate consult w/ Information Systems Security Analyst: To be admitted to medicine. Dr. Pugh to take to OR at 1300 Appreciate consult w/ Dr. Rodriguez- to admit to his service pt in [facility], agreeable to plan. - RAD Interpretation Radiology Orders: 02/20/18 07:53 ABDOMEN & PELVIS [ABD & PELVIS IV CONTRAST ONLY] [CT] Stat GALLBLADDER & COMMON DUCT [US] Stat Disposition/Present on Arrival - Present on Arrival Any Indicators Present on Arrival: No History of DVT/PE: No History of Uncontrolled Diabetes: No Urinary Catheter: No History of Decub. Ulcer: No History Surgical Site Infection Following: None - Disposition Have Diagnosis and Disposition been Completed?: Yes Diagnosis: Appendicitis Disposition Time: 10:13 Patient Problems: Current Active Problems Problem Status Onset Appendicitis Acute Condition: GOOD Forms: [employer] (Andorran)
[2018-02-20] MEDS: Sodium Chloride 0.9% 1,000 ML IV SCH ×2 (08:31→17:45)
[2018-02-20 08:33] LABS: HEMOGLOBIN 8.3 g/dL (12.0-16.0); RBC 2.77 10^6/uL (3.5-6.1); WHITE BLOOD COUNT 10.2 10^3/uL (4.5-11.0)
[2018-02-20 08:34] LABS: BASO # 0.03 K/mm3 (0.0-2.0); BASO % 0.3 % (0.0-3.0); EOS # 0.1 (0.0-0.7); EOS % 1.1 % (1.5-5.0); GRAN # 7.89 (1.4-6.5); GRAN % 77.6 % (50.0-68.0); LYMPH # 1.6 (1.2-3.4); LYMPH % 15.2 % (22.0-35.0); MEAN CELL VOLUME 93.9 fl (80.0-105.0); MEAN CORPUSCULAR HGB CONC 31.9 g/dl (31.0-37.0); MEAN PLATELET VOLUME 11.1 fl (7.0-11.0); MONO # 0.6 (0.1-0.6); MONO % 5.8 % (1.0-6.0)
[2018-02-20 09:06] LABS: ALB/GLOB RATIO 1.1 (1.1-1.8); ALT/SGPT 12 U/L (7-56); AST/SGOT 18 U/L (14-36); BLOOD UREA NITROGEN 11 mg/dL (7-21); CALCIUM 9.1 mg/dL (8.4-10.5); GFR NON-AFRICAN AMERICAN > 60; LIPASE 72 U/L (23-300)
[2018-02-20] MEDS ORDERED: Iohexol 350 MG/100 ML VIAL ONE (09:20)
[2018-02-20 09:31] LABS: PH,URINE 6.5 (4.7-8.0); URINE BILIRUBIN NEGATIVE (NEGATIVE); URINE BLOOD LARGE (NEGATIVE); URINE COLOR YELLOW (YELLOW); URINE GLUCOSE (UA) NEGATIVE (NEGATIVE); URINE LEUKOCYTE ESTERASE TRACE Leu/uL (NEGATIVE); URINE PROTEIN 30 mg/dL (<30 mg/dL); URINE UROBILINOGEN 0.2 E.U./dL (<1 E.U./dL)
[2018-02-20 09:32] LABS: URINE APPEARANCE SL CLOUDY (CLEAR)
--- NOTE | 2018-02-20 09:34 | US ---
Date of service: 02/20/2018 HISTORY: ruq pain COMPARISON: None. TECHNIQUE: Sonographic evaluation of the right upper quadrant of the abdomen. FINDINGS: LIVER: Measures 13.55 x 10.43 cm in length. Increased echogenicity of the liver parenchyma. No mass. No intrahepatic bile duct dilatation. GALLBLADDER: Unremarkable. No gallstones. COMMON BILE DUCT: Measures 6 mm. No stones. No dilatation. PANCREAS: Unremarkable as visualized. No mass. No ductal dilatation. RIGHT KIDNEY: Measures 11.62 x 5.15 x 5.70 cm in length. Normal echogenicity. No calculus, mass, or hydronephrosis. AORTA: No aneurysmal dilatation. IVC: Unremarkable. OTHER FINDINGS: None . IMPRESSION: No acute findings
[2018-02-20 09:45] LABS: URINE RBC TNTC /hpf (0-2)
[2018-02-20] MEDS ORDERED: Morphine 4 mg/ml ISec IVP STA (10:07)
--- NOTE | 2018-02-20 10:10 | CT ---
Date of service: 02/20/2018 PROCEDURE: CT Abdomen and Pelvis with contrast HISTORY: rlq, ruq pain COMPARISON: None. TECHNIQUE: Contrast dose: 100 cc of Omni 350 Radiation dose: Total exam DLP = 601.77 mGy-cm. This CT exam was performed using one or more of the following dose reduction techniques: Automated exposure control, adjustment of the mA and/or kV according to patient size, and/or use of iterative reconstruction technique. FINDINGS: LOWER THORAX: Unremarkable. LIVER: Unremarkable. No gross lesion or ductal dilatation. GALLBLADDER AND BILE DUCTS: Unremarkable. PANCREAS: Unremarkable. No gross lesion or ductal dilatation. SPLEEN: Unremarkable. ADRENALS: Unremarkable. No mass. KIDNEYS AND URETERS: Unremarkable. No hydronephrosis. No solid mass. VASCULATURE: Unremarkable. No aortic aneurysm. No aortic atherosclerotic calcification or mural plaque present. BOWEL: Unremarkable. No obstruction. No gross mural thickening. APPENDIX: The appendix is mildly dilated measuring 12 mm. There is a thickened enhancing wall. Findings are consistent with early appendicitis. Only a short segment of the appendix is visualized. The distal appendix is contiguous with the right ovary which contains a 26 mm cyst. The finding is best visualized on coronal image 30 sagittal image 69 and axial image 122 series 3. The case was discussed with Sidney Burrows at 10 a.m. PERITONEUM: Unremarkable. No free fluid. No free air. LYMPH NODES: Unremarkable. No enlarged lymph nodes. BLADDER: Unremarkable. REPRODUCTIVE: Large lobulated fibroid uterus measuring 10 cm diameter. Bilateral ovarian cysts. There is no fluid in the cul-de-sac BONES: No acute fracture. OTHER FINDINGS: None. IMPRESSION: The appendix is mildly dilated measuring 12 mm. There is a thickened enhancing wall. Findings are consistent with early appendicitis. Only a short segment of the appendix is visualized. The distal appendix is contiguous with the right ovary which contains a 26 mm cyst.
[2018-02-20] MEDS ORDERED: Morphine 2 mg/ml ISec IVP PRN (11:52)
--- NOTE | 2018-02-20 12:11 | CP.PCM.CON ---
History of Present Illness - History of Present Illness History of Present Illness: 47F with PMHx DM, HTN,asthma, anemia 2/2 dysfunctional uterine bleed, presents to [place] ED with complaints of abdominal pain. Patient states abdominal pain began about 4 days ago. She reports pain began along right lower quadrant. Chalino lojashmuel mentioned she has been experiencing subjective fever/chills at night. She has not experienced this kind of pain before. Patient decided to come to ED when she realized pain was not improving. She describes pain is localized in RLQ and sharp in nature. Patient also suffers from uterine bleed 2/2 fibroids. She states last time she saw an toll line inspector was about 3 years ago. Just last week she was seen at [facility] in [place] for vaginal bleeding. Patient states she remains having vaginal bleed but that it has been improving. PMH: as stated above PSH: 2 csections Soc Hx: 1/2ppd x30 years, denies illicit drug use Allergies: NKDA Review of Systems - Review of Systems Review of Systems: 10 pt ROS unremarkable except as stated in HPI Past Patient History - Infectious Disease Hx of Infectious Diseases: None - Tetanus Immunizations Tetanus Immunization: Unknown - Past Social History Smoking Status: Light Smoker < 10 Cigarettes Daily - CARDIAC Hx Cardiac Disorders: Yes Hx Hypertension: Yes - PULMONARY Hx Respiratory Disorders: Yes (SMOKED CIGARETTES 4 /D) Hx Asthma: Yes - NEUROLOGICAL Hx Neurological Disorder: Yes (PINCHED NERVE) Other/Comment: "nerve damage to neck" - HEENT Hx HEENT Problems: Yes Other/Comment: BILATERAL EAR SURGERY - RENAL Hx Chronic Kidney Disease: No - ENDOCRINE/METABOLIC Hx Endocrine Disorders: Yes Hx Diabetes Mellitus Type 2: Yes - HEMATOLOGICAL/ONCOLOGICAL Hx Blood Disorders: No - INTEGUMENTARY Hx Dermatological Problems: No - MUSCULOSKELETAL/RHEUMATOLOGICAL Hx Musculoskeletal Disorders: Yes Hx Arthritis: Yes Hx Back Pain: Yes Hx Falls: No Hx Unsteady Gait: Yes Other/Comment: SCIATICA. 3 bulging disks in neck - GASTROINTESTINAL Hx Gastrointestinal Disorders: No - GENITOURINARY/GYNECOLOGICAL Hx Genitourinary Disorders: Yes (FIBROID UTERUS) Other/Comment: C SECTION X 2 - PSYCHIATRIC Hx Psychophysiologic Disorder: No Hx Substance Use: No - SURGICAL HISTORY Hx Section: Yes (x2) - ANESTHESIA Hx Anesthesia: Yes Hx Anesthesia Reactions: No Hx Malignant Hyperthermia: No Meds Allergies/Adverse Reactions: Allergies Allergy/AdvReac Type Severity Reaction Status Date / Time No Known Allergies Allergy Verified 02/20/18 07:45 - Medications Medications: Current Medications Sodium Chloride (Sodium Chloride 0.9%) 1,000 mls @ 100 mls/hr IV .Q10H AZUCENA Last Admin: 02/20/18 08:31 Dose: 100 mls/hr Metronidazole (Flagyl) 500 mg in 100 mls @ 100 mls/hr IVPB Q8 AZUCENA; Protocol Ceftriaxone Sodium (Rocephin 2 Gm Ivpb) 2 gm in 100 mls @ 100 mls/hr IVPB DAILY AZUCENA; Protocol Morphine Sulfate (Morphine) 2 mg IVP Q4H PRN PRN Reason: Pain, moderate (4-7) Physical Exam - Constitutional Appears: No Acute Distress - Head Exam Head Exam: NORMOCEPHALIC - Eye Exam Eye Exam: EOMI, Normal appearance - ENT Exam ENT Exam: Mucous Membranes Moist - Respiratory Exam Respiratory Exam: NORMAL BREATHING PATTERN - Cardiovascular Exam Cardiovascular Exam: +S1, +S2 - GI/Abdominal Exam GI & Abdominal Exam: Rebound, Soft, Tenderness. absent: Distended, Firm, Guarding, Rigid Additional comments: RLQ tenderness +rebound - Neurological Exam Neurological exam: Alert, Oriented x3 - Psychiatric Exam Psychiatric exam: Normal Mood - Skin Skin Exam: Normal Color, Warm Results - Vital Signs Recent Vital Signs: Last Vital Signs Temp 98.3 F 02/20/18 10:13 Pulse 78 02/20/18 10:13 Resp 19 02/20/18 10:13 BP 132/77 02/20/18 10:13 Pulse Ox 99 02/20/18 10:13 - Labs Result Diagrams: 02/20/18 08:25 02/20/18 08:25 Labs: Laboratory Results - last 24 hr 02/20/18 02/20/18 02/20/18 08:25 08:25 09:12 WBC 10.2 RBC 2.77 L Hgb 8.3 L Hct 26.0 L MCV 93.9 MCH 30.0 MCHC 31.9 RDW 14.0 Plt Count 333 MPV 11.1 H Gran % 77.6 H Lymph % (Auto) 15.2 L [place] % (Auto) 5.8 Eos % (Auto) 1.1 L Baso % (Auto) 0.3 Gran # 7.89 H Lymph # (Auto) 1.6 [place] # (Auto) 0.6 Eos # (Auto) 0.1 Baso # (Auto) 0.03 Sodium 138 Potassium 3.8 Chloride 103 Carbon Dioxide 27 Anion Gap 12 BUN 11 Creatinine 0.4 L Est GFR ( Amer) > 60 Est GFR (Non-Af Amer) > 60 Random Glucose 104 Calcium 9.1 Total Bilirubin 0.3 AST 18 ALT 12 Alkaline Phosphatase 54 Total Protein 7.4 Albumin 4.0 Globulin 3.5 Albumin/Globulin Ratio 1.1 Lipase 72 Urine Color Yellow Urine Appearance Sl cloudy Urine pH 6.5 Ur Specific [place] 1.020 Urine Protein 30 H Urine Glucose (UA) Negative Urine Ketones Negative Urine Blood Large H Urine Nitrate Negative Urine Bilirubin Negative Urine Urobilinogen 0.2 Ur Leukocyte Esterase Trace H Urine RBC Tntc Urine WBC 2 - 5 Ur Epithelial Cells 3 - 4 Assessment & Plan - Assessment and Plan (Free Text) Assessment: 47F with acute appendicitis Plan: -NPO -IVF -ABx -F/u PT/PTT -Analgesics prn -Type and cross, 2 units on hold -Patient scheduled for OR for laparoscopic appendectomy possible open at 1PM today -D/w Dr. Magy Brown PGY3
[2018-02-20] MEDS: cefTRIAXone 2 GM IN NS 2 GM/100 ML BAG IVPB SCH (12:14)
[2018-02-20] MEDS ORDERED: Propofol 10 mg/ml Inj (20 ML) ONE (12:58)
[2018-02-20] MEDS ORDERED: Succinylcholine 200 mg/10 ml Inj IV ONE (12:58)
[2018-02-20 13:01] LABS: INR 1.1; PARTIAL THROMBOPLASTIN TIME 29.1 Seconds (25.1-36.5); PROTHROMBIN TIME 12.7 SECONDS (9.4-12.5)
[2018-02-20] MEDS ORDERED: Phenylephrine 10 mg/ml Inj ONE (13:05)
[2018-02-20] MEDS: metroNIDAZOLE IV 500 mg/100 ml 500 MG/100 ML BAG IVPB SCH ×2 (13:11→21:31)
[2018-02-20] MEDS ORDERED: HYDROmorphone 1 mg/ml ISec IVP PRN (13:16)
[2018-02-20] MEDS ORDERED: Lactated Ringer's 1,000 ML IV SCH ×2 (13:30→15:00)
[2018-02-20] MEDS ORDERED: Midazolam 2 MG/2 ML VIAL ONE (13:34)
[2018-02-20] MEDS ORDERED: Rocuronium 10 mg/ml (5 ml) ONE (13:53)
[2018-02-20] MEDS ORDERED: Bupivacaine 0.5% 50 ML IJ ONE ×2 (14:01→14:05)
--- NOTE | 2018-02-20 14:04 | RAD ---
Date of service: 02/20/2018 HISTORY: pre-op COMPARISON: 06/18/2015 FINDINGS: LUNGS: No active pulmonary disease. PLEURA: No significant pleural effusion identified, no pneumothorax apparent. CARDIOVASCULAR: No aortic atherosclerotic calcification present. Normal cardiac size. No pulmonary vascular congestion. OSSEOUS STRUCTURES: No significant abnormalities. VISUALIZED UPPER ABDOMEN: Normal. OTHER FINDINGS: None. IMPRESSION: No active disease.
[2018-02-20] MEDS ORDERED: Desflurane Inhalation Anesthetic Liq (240 ml) ONE (14:06)
[2018-02-20] MEDS ORDERED: Neostigmine Methylsulfate 3mg/3ml Syringe IV ONE (14:08)
[2018-02-20] MEDS ORDERED: Esmolol 100 mg/10ml Inj IV ONE (14:10)
[2018-02-20] MEDS: HYDROmorphone 1 mg/ml ISec IVP PRN ×2 (14:50→15:20)
--- NOTE | 2018-02-20 14:51 | PCM.SURG1 ---
Surgeon's Initial Post Op Note - Surgeon's Notes Surgeon: Dr. Bhatti Solution Designer: Dr. Berg PGY3, Dr. Soto PGY1 Type of Anesthesia: General Endo Pre-Operative Diagnosis: acute appendicitis Operative Findings: see operative note Post-Operative Diagnosis: same Operation Performed: laparoscopic appendectomy, lysis of adhesions Specimen/Specimens Removed: appendix Estimated Blood Loss: EBL {In ML}: 5 Blood Products Given: N/A Drains Used: No Drains Post-Op Condition: Good Date of Surgery/Procedure: 02/20/18 Time of Surgery/Procedure: 14:50
[2018-02-20] MEDS ORDERED: HYDROmorphone 1 mg/ml ISec ONE (15:25)
--- NOTE | 2018-02-20 15:32 | CARD ---
APPROVED REPORT Date of service: 02/20/2018 EKG Measurement Heart [id number] <Conclusion> Normal sinus rhythm Cannot rule out Anterior infarct, age undetermined Abnormal ECG
[2018-02-20] MEDS: Budesonide 0.25 mg/2 ml Inhal Susp UD IH SCH (21:07)
[2018-02-20] MEDS: Arformoterol 15 mcg/2 ml Inh Sol IH SCH (21:07)
[2018-02-20 23:08] VITALS: RESP 20; O2SAT 98
[2018-02-20] MEDS: Morphine 2 mg/ml ISec IVP PRN (23:42)
--- NOTE | 2018-02-21 03:42 | HP ---
DATE OF EXAM: 02/20/2018 CHIEF COMPLAINT: Deborah Galo came in with abdominal pain. HISTORY OF PRESENT ILLNESS: A 47-year-old female with history of hypertension, chronic neck pain, menorrhagia with uterine bleeding. She came in because of persistent pain on the right side of the abdomen, more in the lower. She have this pain for a couple of days. The patient have persistent pain, came to the ER for evaluation to have acute appendicitis. The patient was seen a week ago at [facility] and we found she has uterine bleed and menorrhagia. PAST MEDICAL HISTORY: Hypertension, fibroid uterus, menorrhagia, chronic neck pain, chronic osteoarthritis, diabetes type 2, obesity, anemia, COPD, and asthma. FAMILY HISTORY: Noncontributory. SOCIAL HISTORY: She smoked 3 years. No drugs. ALLERGIES: NO KNOWN ALLERGIES. HOME MEDICATIONS: She takes alogliptin, inhalers for COPD. She takes also nebulizer treatment, Jardiance, Tessalon Perles, aspirin baby, Microzide 25, Neurontin 1 tab 300 b.i.d., Pepcid 1 tab daily, vitamin B once a week, oxycodone 5 mg, multivitamins, Avapro 300 once a day and ibuprofen p.r.n. for pain. REVIEW OF SYSTEMS: As in the present illness; chronic neck pain, menorrhagia, and otherwise negative. PHYSICAL EXAMINATION: VITAL SIGNS: Temperature 98, heart rate 76, blood pressure 161/81, respirations 18, and saturation 100%. HEAD AND NECK: Normal. No JVD. No thyromegaly. CHEST: Clear bilaterally. CARDIAC: First sound and second sound normal. ABDOMEN: Soft. There is tenderness mainly in the right lower quadrant with rebound tenderness. EXTREMITIES: No edema. NEUROLOGIC: Normal. LABORATORY DATA: White count 10.2, hemoglobin 8.3, hematocrit 26.0, platelets 333. Chemistry: Sodium 138, potassium 3.8, chloride 103, bicarb 27, BUN is 11, creatinine 0.4. Liver function test is normal. Lipase is normal. The patient had a CT abdomen and pelvis shows mildly dilated appendicitis 12 mm in size consistent with appendicitis. Also right ovarian cyst 26 mm cyst. Gallbladder ultrasound is unremarkable. Gallbladder, no gall stones. IMPRESSION AND PLAN: The is a 47-year-old female came with acute abdominal pain, found to have acute appendicitis. The patient will go for surgery, . surgery consulted, we will do it laparoscopically. The patient is going to receive Rocephin plus Flagyl. Continue IV fluids and we will follow up with the surgeon. 2. Diabetes and hypertension, resume meds. We will give insulin coverage and resume all other medications. Continue gastrointestinal and deep venous thrombosis prophylaxis. Reji Rodriguez MD
[2018-02-21] MEDS: Morphine 2 mg/ml ISec IVP PRN ×2 (04:55→10:07)
[2018-02-21] MEDS: metroNIDAZOLE IV 500 mg/100 ml 500 MG/100 ML BAG IVPB SCH ×2 (05:36→14:23)
[2018-02-21 07:43] LABS: HEMOGLOBIN 7.6 g/dL (12.0-16.0); MEAN CORPUSCULAR HEMOGLOBIN 29.5 pg (25.0-35.0); MEAN CORPUSCULAR HGB CONC 31.7 g/dl (31.0-37.0); MEAN PLATELET VOLUME 10.8 fl (7.0-11.0); RBC 2.58 10^6/uL (3.5-6.1); RED CELL DISTRIBUTION WIDTH 14.2 % (11.5-14.5)
[2018-02-21] MEDS: Budesonide 0.25 mg/2 ml Inhal Susp UD IH SCH (07:49)
[2018-02-21] MEDS: Arformoterol 15 mcg/2 ml Inh Sol IH SCH (07:49)
[2018-02-21 08:01] LABS: BLOOD UREA NITROGEN 14 mg/dL (7-21); CALCIUM 8.6 mg/dL (8.4-10.5); GFR NON-AFRICAN AMERICAN > 60
[2018-02-21] MEDS: Insulin Reg-LOW-Coverage SC SCH ×2 (08:30→12:30)
--- NOTE | 2018-02-21 09:02 | CP.PCM.PN ---
Subjective - Date & Time of Evaluation Date of Evaluation: 02/21/18 Time of Evaluation: 09:02 - Subjective Subjective: Surgery Progress Note for Dr. Bhatti Patient seen and examined at bedside today. Patient tolerated breakfast this morning and finished whole plate of eggs. She denies nausea and vomiting. Not complaining of abdominal pain. Patient is eager to return home with arrangement of transportation. Objective - Vital Signs/Intake and Output Vital Signs (last 24 hours): Temp Pulse Resp BP Pulse Ox 98.4 F 91 H 20 120/39 L 98 02/20/18 22:00 02/20/18 22:00 02/20/18 22:00 02/20/18 22:00 02/20/18 22:00 - Medications Medications: Current Medications Acetaminophen (Tylenol 325mg Tab) 650 mg PO Q4H PRN PRN Reason: Pain, Mild (1-3) Last Admin: 02/21/18 07:59 Dose: 650 mg Albuterol Sulfate (Albuterol 0.083% Inhal Naida (2.5 Mg/3 Ml) Ud) 2.5 mg IH QIDRESP AZUCENA Arformoterol Tartrate (Brovana) 15 mcg IH [id number] AZUCENA Last Admin: 02/21/18 07:49 Dose: 15 mcg Budesonide (Pulmicort Respules) 0.25 mg IH [id number] AZUCENA Last Admin: 02/21/18 07:49 Dose: 0.25 mg Sodium Chloride (Sodium Chloride 0.9%) 1,000 mls @ 100 mls/hr IV .Q10H AZUCENA Last Admin: 02/20/18 17:45 Dose: 100 mls/hr Metronidazole (Flagyl) 500 mg in 100 mls @ 100 mls/hr IVPB Q8 AZUCENA; Protocol Last Admin: 02/21/18 05:36 Dose: 100 mls/hr Ceftriaxone Sodium (Rocephin 2 Gm Ivpb) 2 gm in 100 mls @ 100 mls/hr IVPB DAILY AZUCENA; Protocol Last Admin: 02/20/18 12:14 Dose: 100 mls/hr Insulin Human Regular (Humulin R Low) 0 units SC ACHS AZUCENA; Protocol Morphine Sulfate (Morphine) 2 mg IVP Q4H PRN PRN Reason: Pain, severe (8-10) Last Admin: 02/21/18 04:55 Dose: 2 mg Ondansetron HCl (Zofran Inj) 4 mg IVP Q6 PRN PRN Reason: nausea/vomiting Last Admin: 02/20/18 14:45 Dose: 4 mg - Labs Labs: 02/21/18 07:15 02/21/18 07:15 PT 12.7 SECONDS (9.4-12.5) H 02/20/18 12:30 INR 1.10 02/20/18 12:30 APTT 29.1 Seconds (25.1-36.5) 02/20/18 12:30 - Constitutional Appears: Well, Non-toxic - Head Exam Head Exam: ATRAUMATIC, NORMAL INSPECTION, NORMOCEPHALIC - Eye Exam Eye Exam: EOMI, Normal appearance - Neck Exam Neck Exam: Normal Inspection - Respiratory Exam Respiratory Exam: Clear to Ausculation Bilateral, NORMAL BREATHING PATTERN - Cardiovascular Exam Cardiovascular Exam: REGULAR RHYTHM - GI/Abdominal Exam GI & Abdominal Exam: Distended, Tenderness (diffuse TTP all four quadrants/surgical sites), Normal Bowel Sounds Additional comments: abdominal dressings c/d/i - Extremities Exam Extremities Exam: Normal Inspection - Neurological Exam Neurological Exam: Alert, Awake, Oriented x3 - Psychiatric Exam Psychiatric exam: Normal Affect, Normal Mood - Skin Skin Exam: Dry, Intact, Normal Color, Warm Assessment and Plan - Assessment and Plan (Free Text) Assessment: 47F with appendicitis s/p appy POD1 -cleared for discharge -f/u with Dr. Bhatti in 10 days for removal of surgical alyssa -can remove dressing and shower tomorrow, 02/22 -no tubs, baths, or pools for 2 weeks -no lifting objects heavier than a gallon of liquid -other recs per Dr. Bhatti [facility] PGY1
[2018-02-21] MEDS: cefTRIAXone 2 GM IN NS 2 GM/100 ML BAG IVPB SCH (09:22)
[2018-02-21 10:37] VITALS: BP 120/65; PULSE 70; TEMP 98.2
[2018-02-21] MEDS ORDERED: Albuterol 0.083% Inhal Sol (2.5 mg/3 mL) UD IH SCH (20:00)
--- NOTE | 2018-02-22 18:59 | DS ---
HISTORY OF PRESENT ILLNESS: She was admitted with acute appendicitis, laparoscopic appendectomy done by . The patient is doing very well. She is going home. She has no chest pain. No short of breath. She is otherwise hemodynamically stable. PHYSICAL EXAMINATION: VITAL SIGNS: Temperature 98, heart rate 70, blood pressure 120/65, respiration 20, and sat 98%. HEAD AND NECK: Normal. No JVD. No thyromegaly. CHEST: Clear bilateral. CARDIAC: First sound and second sound are normal. ABDOMEN: Soft and nontender. EXTREMITIES: No edema. NEUROLOGIC: Normal. LABORATORY DATA: Her laboratory on next day, white count 15, hemoglobin 7.6, hematocrit 24, and platelets 361. Sodium 138, potassium 3.7, chloride 107, bicarb 25, BUN 14, creatinine 0.5, blood sugar 111, and calcium 8.6. DISCHARGE DIAGNOSES: 1. Acute appendicitis. 2. Status post appendectomy, laparoscopic. 3. Diabetes. 4. Hypertension. 5. Chronic back pain. PLAN: The patient is given Augmentin, Flagyl, and Percocet for the next 5 days. Continue current therapy, seen in the office within a week. Reji Rodriguez MD
--- NOTE | 2018-02-22 21:31 | OP ---
PROCEDURE DATE: 02/20/2018 PREOPERATIVE DIAGNOSIS: Acute appendicitis. POSTOPERATIVE DIAGNOSIS: Acute appendicitis. PROCEDURES: 1. Laparoscopic appendectomy. 2. Laparoscopic enterolysis. SURGEON: Ferny Bhatti MD COMPLICATIONS: None. ANESTHESIA: General endotracheal. DESCRIPTION OF PROCEDURE: The patient was brought in to the operating room, placed on the operating room table in the supine position. After smooth induction of general endotracheal anesthesia, the abdomen was prepped and draped in the usual sterile fashion. An incision was performed in a vertical fashion in the infraumbilical area which was then brought down to subcutaneous tissue with Bovie electrocautery. The linea alba was incised, and the peritoneal cavity was accessed. Domonique trocar was inserted. The obturator was removed and the port was connected to the CO2 tank generating pneumoperitoneum up to 15 mmHg. The 10 mm 30-degree laparoscopic video camera was inserted, and the abdomen was inspected. There appeared to be cloudy fluid in the right pericolic gutter and right pelvis. There appeared to be multiple adhesions in the lower abdomen, and the uterus was partly concealed by those adhesions and appeared to have large leiomyomas and a 3-cm right ovarian cyst. The two 5-mm ports were inserted under direct laparoscopic visualization. Some of the adhesions were taken down in order to access the appendix and the cecum in a more . The appendix was identified, the mesoappendix was secured with a 5-mm LigaSure in a sequential fashion all the way to the base of the appendix. The endo KASEY 45 blue stapler was fired across the base of the appendix, and the specimen was placed in Endo bag and removed from the operating field and was sent to pathology with appropriate label for permanent section. The abdomen was irrigated with copious amounts of warm normal saline, and there was no evidence of bleeding or succus discharge from the staple line. The infraumbilical incision was closed with interrupted 0-Vicryl stitches and the integrity of the fascial closure was checked by inserting a 5 mm 30-degree laparoscopic video camera through the left lower quadrant port. There was also no bile or omental entrapment, and no evidence of bleeding. The remaining two 5-mm ports were removed under direct laparoscopic visualization. There was no evidence of bleeding from the port sites. All skin incisions were closed with alyssa, sterile dressings were applied. At the end of the surgery, the count of the instruments as well as the needles were correct x2. The patient tolerated the surgery well and was transferred in stable condition to the recovery room. Ferny Bhatti MD
== END 2018-02-21 15:15 | disposition home or self-care (01) | DRG 150 ==
LOC: ED 07:28 → ERH 11:40 → 5RSO 16:21
PROVIDERS: ADMIT Internal Medicine; ATTEND Internal Medicine
PROC: 0DNW4ZZ Release Peritoneum, Percutaneous Endoscopic Approach (ICD-10-PCS; 2018-02-20)
PROC: 0DTJ4ZZ Resection of Appendix, Percutaneous Endoscopic Approach (ICD-10-PCS; principal; 2018-02-20 13:36)
DX: K35.80 Unspecified acute appendicitis (principal); E11.41 Type 2 diabetes mellitus with diabetic mononeuropathy; J44.9 Chronic obstructive pulmonary disease, unspecified; I10 Essential (primary) hypertension; D25.9 Leiomyoma of uterus, unspecified; N92.0 Excessive and frequent menstruation with regular cycle; G89.29 Other chronic pain; K66.0 Peritoneal adhesions (postprocedural) (postinfection)

== ENCOUNTER 2018-03-05 12:10 | Emergency (ER) | payer MEDICAID ==
[2018-03-05 12:10] VITALS: BMI 28.5
--- NOTE | 2018-03-05 13:42 | ED PDOC ---
Arrival/HPI - General Chief Complaint: Abnormal Skin Integrity Time Seen by Provider: 03/05/18 12:27 Historian: Patient Past Medical History - Infectious Disease Hx of Infectious Diseases: None - Tetanus Immunization Tetanus Immunization: Unknown - Reproductive Menopause: No - Past Medical History Past Medical History: No Previous - Cardiac Hx Cardiac Disorders: Yes Hx Hypertension: Yes - Pulmonary Hx Respiratory Disorders: Yes (SMOKED CIGARETTES 4 /D) Hx Asthma: Yes - Neurological Hx Neurological Disorder: Yes (PINCHED NERVE) Other/Comment: "nerve damage to neck" - HEENT Hx HEENT Disorder: Yes Other/Comment: BILATERAL EAR SURGERY - Renal Hx Renal Disorder: No - Endocrine/Metabolic Hx Endocrine Disorders: Yes Hx Diabetes Mellitus Type 2: Yes - Hematological/Oncological Hx Blood Disorders: No - Integumentary Hx Dermatological Disorder: No - Musculoskeletal/Rheumatological Hx Falls: No - Gastrointestinal Hx Gastrointestinal Disorders: No - Genitourinary/Gynecological Hx Genitourinary Disorders: Yes (FIBROID UTERUS) Other/Comment: C SECTION X 2 - Psychiatric Hx Psychophysiologic Disorder: No Hx Substance Use: No - Past Surgical History Past Surgical History: No Previous - Surgical History Other/Comment: C SECTION X 2. - Anesthesia Hx Anesthesia: Yes Hx Anesthesia Reactions: No Hx Malignant Hyperthermia: No - Suicidal Assessment Feels Threatened In Home Enviroment: No Family/Social History Smoking Status: Light Smoker < 10 Cigarettes Daily Hx Alcohol Use: No Hx Substance Use: No Hx Substance Use Treatment: No Allergies/Home Meds Allergies/Adverse Reactions: Allergies No Known Allergies Allergy (Verified 02/20/18 07:45) Home Medications: Home Meds Medication Instructions Recorded Confirmed Albuterol 0.083% [Albuterol 0.083% 1 vial IH QID 12/15/17 02/20/18 Inhal Naida (2.5 mg/3 ml) UD] Albuterol HFA [Ventolin HFA 90 2 puff IH QID 12/15/17 02/20/18 mcg/actuation (8 g)] Alogliptin Benzoate [Alogliptin] 1 tab PO DAILY 12/15/17 02/20/18 Aspirin [Aspirin Chewable] 1 tab PO DAILY 12/15/17 02/20/18 Benzonatate [Tessalon Perles] 2 cap PO BID 12/15/17 02/20/18 Empagliflozin [Jardiance] 1 tab PO DAILY 12/15/17 02/20/18 Ergocalciferol [Drisdol 50,000 1 cap PO Q7D 12/15/17 02/20/18 Intl Units Cap] Famotidine [Pepcid] 1 tab PO DAILY 12/15/17 02/20/18 Gabapentin [Neurontin] 1 cap PO BID 12/15/17 02/20/18 Hydrochlorothiazide [Microzide] 25 mg PO DAILY 12/15/17 02/20/18 Irbesartan [Avapro] 1 tab PO DAILY 12/15/17 02/20/18 Multivitamin [Multivitamins] 1 tab PO DAILY 12/15/17 02/20/18 Oxycodone HCl/Acetaminophen 5 mg PO DAILY PRN 12/15/17 02/20/18 [Percocet 10-325 mg Tablet] Physical Exam Vital Signs Temp Pulse Resp BP Pulse Ox 03/05/18 12:20 98.5 F 78 16 133/82 99 Disposition/Present on Arrival - Present on Arrival History of DVT/PE: No History of Uncontrolled Diabetes: No Urinary Catheter: No History of Decub. Ulcer: No History Surgical Site Infection Following: None - Disposition
--- NOTE | 2018-03-05 13:47 | ED PDOC ---
Arrival/HPI - General Chief Complaint: Abnormal Skin Integrity Time Seen by Provider: 03/05/18 12:27 Historian: Patient - History of Present Illness Narrative History of Present Illness (Text): 03/05/18 13:36 A 47 year old female, whose past medical history includes [place] [facility] [place], presents to the emergency department complaining of redness and pain around her incision sites since earlier today. Patient reports she called Dr. Ballesteros's office and was told Dr. Ballesteros was on vacation to which she was referred to the ER. Patient denies any fever, chills, shortness of breath, chest pain, diarrhea, nausea, vomiting, urinary symptoms, back pain, neck pain, headache, dizziness, or any other complaints. Time/Duration: Other (earlier today) Symptom Onset: Gradual Symptom Course: Unchanged Activities at Onset: Light Context: Home Past Medical History - Provider Review Nursing Documentation Reviewed: Yes - Infectious Disease Hx of Infectious Diseases: None - Tetanus Immunization Tetanus Immunization: Unknown - Reproductive Menopause: No - Past Medical History Past Medical History: No Previous - Cardiac Hx Cardiac Disorders: Yes Hx Hypertension: Yes - Pulmonary Hx Respiratory Disorders: Yes (SMOKED CIGARETTES 4 /D) Hx Asthma: Yes - Neurological Hx Neurological Disorder: Yes (PINCHED NERVE) Other/Comment: "nerve damage to neck" - HEENT Hx HEENT Disorder: Yes Other/Comment: BILATERAL EAR SURGERY - Renal Hx Renal Disorder: No - Endocrine/Metabolic Hx Endocrine Disorders: Yes Hx Diabetes Mellitus Type 2: Yes - Hematological/Oncological Hx Blood Disorders: No - Integumentary Hx Dermatological Disorder: No - Musculoskeletal/Rheumatological Hx Falls: No - Gastrointestinal Hx Gastrointestinal Disorders: No - Genitourinary/Gynecological Hx Genitourinary Disorders: Yes (FIBROID UTERUS) Other/Comment: C SECTION X 2 - Psychiatric Hx Psychophysiologic Disorder: No Hx Substance Use: No - Past Surgical History Past Surgical History: No Previous - Surgical History Other/Comment: C SECTION X 2. - Anesthesia Hx Anesthesia: Yes Hx Anesthesia Reactions: No Hx Malignant Hyperthermia: No - Suicidal Assessment Feels Threatened In Home Enviroment: No Family/Social History - Physician Review Nursing Documentation Reviewed: Yes Family/Social History: No Known Family HX Smoking Status: Light Smoker < 10 Cigarettes Daily Hx Alcohol Use: No Hx Substance Use: No Hx Substance Use Treatment: No Allergies/Home Meds Allergies/Adverse Reactions: Allergies No Known Allergies Allergy (Verified 02/20/18 07:45) Home Medications: Home Meds Medication Instructions Recorded Confirmed Albuterol HFA [Ventolin HFA 90 2 puff IH QID 12/15/17 02/20/18 mcg/actuation (8 g)] Alogliptin Benzoate [Alogliptin] 1 tab PO DAILY 12/15/17 02/20/18 Aspirin [Aspirin Chewable] 1 tab PO DAILY 12/15/17 02/20/18 Benzonatate [Tessalon Perles] 2 cap PO BID 12/15/17 02/20/18 Empagliflozin [Jardiance] 1 tab PO DAILY 12/15/17 02/20/18 Ergocalciferol [Drisdol 50,000 1 cap PO Q7D 12/15/17 02/20/18 Intl Units Cap] Famotidine [Pepcid] 1 tab PO DAILY 12/15/17 02/20/18 Gabapentin [Neurontin] 1 cap PO BID 12/15/17 02/20/18 Irbesartan [Avapro] 1 tab PO DAILY 12/15/17 02/20/18 Oxycodone HCl/Acetaminophen 5 mg PO DAILY PRN 12/15/17 02/20/18 [Percocet 10-325 mg Tablet] RX: Albuterol 0.083% [Albuterol 1 vial IH QID 12/15/17 02/20/18 0.083% Inhal Naida (2.5 mg/3 ml) UD] RX: Hydrochlorothiazide [Microzide] 25 mg PO DAILY 12/15/17 02/20/18 RX: Multivitamin [Multivitamins] 1 tab PO DAILY 12/15/17 02/20/18 Review of Systems - Physician Review All systems were reviewed & negative as marked: Yes - Review of Systems Constitutional: absent: Fevers, Night Sweats Respiratory: absent: SOB Cardiovascular: absent: Chest Pain Gastrointestinal: Abdominal Pain (pain around incision sites on abdomen). absent: Diarrhea, Nausea, Vomiting Genitourinary Female: absent: Urine Output Changes Musculoskeletal: absent: Back Pain, Neck Pain Neurological: absent: Headache, Dizziness Physical Exam Vital Signs Reviewed: Yes Vital Signs Temp Pulse Resp BP Pulse Ox 03/05/18 12:20 98.5 F 78 16 133/82 99 Temperature: Afebrile Blood Pressure: Normal Pulse: Regular Respiratory Rate: Normal Appearance: Positive for: Well-Appearing, Non-Toxic, Comfortable Pain Distress: None Mental Status: Positive for: Alert and Oriented X 3 - Systems Exam Head: Present: Atraumatic, Normocephalic Pupils: Present: PERRL Extroacular Muscles: Present: EOMI Conjunctiva: Present: Normal Mouth: Present: Moist Mucous Membranes Neck: Present: Normal Range of Motion Respiratory/Chest: Present: Clear to Auscultation, Good Air Exchange. No: Respiratory Distress, Accessory Muscle Use Cardiovascular: Present: Regular Rate and Rhythm, Normal S1, S2. No: Murmurs Abdomen: Present: Other (+alyssa in place along abdomen wall; no ertyhema, no purulence, not warm to touch, no sign of infection) Back: Present: Normal Inspection Upper Extremity: Present: Normal Inspection. No: Cyanosis, Edema Lower Extremity: Present: Normal Inspection. No: Edema Neurological: Present: GCS=15, CN II-XII Intact, Speech Normal Skin: Present: Other (alyssa noted in place to abdominal wall with pinkish surrounding discoloration). No: Erythematous Psychiatric: Present: Alert, Oriented x 3, Normal Insight, Normal Concentration Medical Decision Making ED Course and Treatment: 03/05/18 13:48 Impression: 47 year old female presenting to the emergency department complaining of redness and pain around incision sites. Progress Notes: 03/05/18 13:48 Case was discussed with Dr. Adams who saw the patient at bedside. Dr. Adams took a picture and sent it to to Dr. Ballesteros and is currently waiting for a response from Dr. Ballesteros. Per the resident Dr. Adams she spoke with Dr. Ballesteros and took out the alyssa, per his instruction. Pt to f/u with her PMD abnd the surgeon. - Scribe Statement The provider has reviewed the documentation as recorded by the Scribe Lauren Feng All medical record entries made by the Scribe were at my direction and personally dictated by me. I have reviewed the chart and agree that the record accurately reflects my personal performance of the history, physical exam, medical decision making, and the department course for this patient. I have also personally directed, reviewed, and agree with the discharge instructions and disposition. Disposition/Present on Arrival - Present on Arrival Any Indicators Present on Arrival: No History of DVT/PE: No History of Uncontrolled Diabetes: No Urinary Catheter: No History of Decub. Ulcer: No History Surgical Site Infection Following: None - Disposition Have Diagnosis and Disposition been Completed?: Yes Diagnosis: Removal of staple Disposition: HOME/ ROUTINE Disposition Time: 14:15 Patient Plan: Discharge Condition: STABLE Discharge Instructions (ExitCare): How to Prevent Surgical Site Infections, Staple Removal Additional Instructions: Follow up with your Doctor/Surgeon Return to ED for any new or worsening symptoms Referrals: Reji Rodriguez MD [Primary Care Provider] - Follow up with primary Herbert Ballesteros MD [Staff Provider] - Follow up with primary Forms: Desino (German)
[2018-03-05 14:21] VITALS: BP 130/80; PULSE 76; RESP 18; TEMP 97.9; O2SAT 98
== END 2018-03-05 14:22 | disposition home or self-care (01) ==
LOC: ED 12:10
DX: Z48.02 Encounter for removal of sutures (principal)

== ENCOUNTER 2018-04-21 08:24 | Emergency (ER) | payer MEDICAID ==
[2018-04-21 08:24] VITALS: BMI 28.5
[2018-04-21 09:35] VITALS: RESP 18; TEMP 98
--- NOTE | 2018-04-21 09:55 | ED PDOC ---
Arrival/HPI - General Chief Complaint: Back Pain Historian: Patient - History of Present Illness Narrative History of Present Illness (Text): 04/21/18 09:48 47 y/o female, pmh including chronic neck/back pain with radiculapathy/asthma/htn, allergic to zithromax, c/o lt. neck/back pain x 2 days as she is out of the percocet. Pt. stated that she has chronic neck pain, usually prescribed percocet by her own pmd but use the last tablet of percocet yesterday so she needs pain medication, no new fall or trauma, no numbness or tingling, feels like her usual neck pain flared up with no worsening signs or symptoms/characteristic/severity of the pain, no other medical or psychological complaints. Past Medical History - Provider Review Nursing Documentation Reviewed: Yes - Infectious Disease Hx of Infectious Diseases: None - Tetanus Immunization Tetanus Immunization: Unknown - Reproductive Currently : No - Past Medical History Past Medical History: No Previous - Cardiac Hx Cardiac Disorders: Yes Hx Hypertension: Yes - Pulmonary Hx Respiratory Disorders: Yes (SMOKED CIGARETTES 4 /D) Hx Asthma: Yes - Neurological Hx Neurological Disorder: Yes (PINCHED NERVE) Other/Comment: "nerve damage to neck" - HEENT Hx HEENT Disorder: Yes Other/Comment: BILATERAL EAR SURGERY - Renal Hx Renal Disorder: No - Endocrine/Metabolic Hx Endocrine Disorders: Yes Hx Diabetes Mellitus Type 2: Yes - Hematological/Oncological Hx Blood Disorders: No - Integumentary Hx Dermatological Disorder: No - Musculoskeletal/Rheumatological Hx Falls: No - Gastrointestinal Hx Gastrointestinal Disorders: No - Genitourinary/Gynecological Hx Genitourinary Disorders: Yes (FIBROID UTERUS) Other/Comment: C SECTION X 2 - Psychiatric Hx Psychophysiologic Disorder: No Hx Substance Use: No - Past Surgical History Past Surgical History: No Previous - Surgical History Other/Comment: C SECTION X 2. - Anesthesia Hx Anesthesia: Yes Hx Anesthesia Reactions: No Hx Malignant Hyperthermia: No - Suicidal Assessment Feels Threatened In Home Enviroment: No Family/Social History - Physician Review Nursing Documentation Reviewed: Yes Family/Social History: Unknown Family HX Smoking Status: Light Smoker < 10 Cigarettes Daily Hx Alcohol Use: No Hx Substance Use: No Hx Substance Use Treatment: No Allergies/Home Meds Allergies/Adverse Reactions: Allergies azithromycin [From Zithromax Z-Peirce] Allergy (Verified 04/21/18 09:36) URTICARIA Home Medications: Home Meds Medication Instructions Recorded Confirmed Albuterol 0.083% [Albuterol 0.083% 1 vial IH QID 12/15/17 02/20/18 Inhal Naida (2.5 mg/3 ml) UD] Albuterol HFA [Ventolin HFA 90 2 puff IH QID 12/15/17 02/20/18 mcg/actuation (8 g)] Alogliptin Benzoate [Alogliptin] 1 tab PO DAILY 12/15/17 02/20/18 Aspirin [Aspirin Chewable] 1 tab PO DAILY 12/15/17 02/20/18 Benzonatate [Tessalon Perles] 2 cap PO BID 12/15/17 02/20/18 Empagliflozin [Jardiance] 1 tab PO DAILY 12/15/17 02/20/18 Ergocalciferol [Drisdol 50,000 1 cap PO Q7D 12/15/17 02/20/18 Intl Units Cap] Famotidine [Pepcid] 1 tab PO DAILY 12/15/17 02/20/18 Gabapentin [Neurontin] 1 cap PO BID 12/15/17 02/20/18 Hydrochlorothiazide [Microzide] 25 mg PO DAILY 12/15/17 02/20/18 Irbesartan [Avapro] 1 tab PO DAILY 12/15/17 02/20/18 Multivitamin [Multivitamins] 1 tab PO DAILY 12/15/17 02/20/18 Oxycodone HCl/Acetaminophen 5 mg PO DAILY PRN 12/15/17 02/20/18 [Percocet 10-325 mg Tablet] Review of Systems - Review of Systems Constitutional: absent: Fatigue, Fevers Eyes: absent: Vision Changes ENT: absent: Hearing Changes Respiratory: absent: SOB, Cough Cardiovascular: absent: Chest Pain Gastrointestinal: absent: Abdominal Pain, Diarrhea, Nausea, Vomiting Musculoskeletal: Neck Pain. absent: Arthralgias, Back Pain, Myalgias Skin: absent: Rash, Pruritis Neurological: absent: Headache, Dizziness Psychiatric: absent: Anxiety, Depression Physical Exam Vital Signs Reviewed: Yes Vital Signs Temp Pulse Resp BP Pulse Ox 04/21/18 08:24 98 F 77 18 154/96 H 99 Temperature: Afebrile Blood Pressure: Hypertensive Pulse: Regular Respiratory Rate: Normal Appearance: Positive for: Well-Appearing, Non-Toxic, Comfortable Pain Distress: Moderate Mental Status: Positive for: Alert and Oriented X 3 - Systems Exam Head: Present: Atraumatic, Normocephalic Pupils: Present: PERRL Extroacular Muscles: Present: EOMI Conjunctiva: Present: Normal Ears: Present: NORMAL TM, Normal Canal. No: Erythema Mouth: Present: Moist Mucous Membranes Pharnyx: No: ERYTHEMA, EXUDATE, TONSILS ENLARGED Nose (External): Present: Atraumatic. No: Abrasion, Contusion, Laceration Nose (Internal): Present: Normal Inspection, No Active Bleeding. No: Rhinorrhea, Septal Hematoma, Epistaxis Neck: Present: Normal Range of Motion, Paraspinal Tenderness (lt. paraspinal muscle of cervical region), Trachea Midline. No: Meningeal Signs, MIDLINE TENDERNESS, Lymphadenopathy Respiratory/Chest: Present: Clear to Auscultation, Good Air Exchange. No: Respiratory Distress, Accessory Muscle Use, Wheezes, Decreased Breath Sounds, Rales, Retracting, Rhonchi, Tachypneic, Tender to Palpation Cardiovascular: Present: Regular Rate and Rhythm, Normal S1, S2. No: Murmurs Abdomen: No: Tenderness, Distention, Peritoneal Signs, Rebound, Guarding Back: Present: Normal Inspection, Other (no midline or paraspinal tenderness on the thoracic or LS spine. ). No: CVA Tenderness, Midline Tenderness, Paraspinal Tenderness, Pain with Leg Raise, Decubitus Ulcer Upper Extremity: Present: Normal Inspection, Normal ROM, NORMAL PULSES, Neurovascularly Intact, Capillary Refill < 2s. No: Cyanosis, Edema, Deformity Lower Extremity: Present: Normal Inspection, NORMAL PULSES, Normal ROM, Neurovascularly Intact, Capillary Refill < 2 s. No: Edema, Tenderness, Swelling, Deformity Neurological: Present: GCS=15, CN II-XII Intact, Speech Normal, Motor Func Grossly Intact, Gait Normal, Memory Normal Skin: Present: Warm, Dry, Normal Color. No: Rashes Psychiatric: Present: Alert, Oriented x 3, Normal Insight, Normal Concentration Medical Decision Making ED Course and Treatment: 04/21/18 10:00 -urine hcg is negative -xrays -Toradol and percocet -observe and reassess 04/21/18 11:14 -Urine hcg is negative -Cervical xray ER wet read: +degenerative changes, no fracture or subluxation. -Chest ray ER wet read: no active disease -I explained to the patient that I don't do prescription refill for narcotics, she expressed understanding. -Pt. feels completely relief, walking around and grabbing coffee, no focal neurological deficits. -Discharge home with celebrex, flexeril, lidoderm patch, follow up with your own pmd and pain management/orthopedic within 2 days, return to the ER for any new or worsening signs or symptoms. - RAD Interpretation Radiology Orders: -Cervical xray Date of service: 04/21/2018 PROCEDURE: Cervical Spine Radiographs. HISTORY: Pain. COMPARISON: None available. FINDINGS: BONES: Alignment maintained. No fracture. Dens Intact. DISC SPACES: Normal. SOFT TISSUES: Normal. No prevertebral soft tissue swelling. OTHER FINDINGS: None. IMPRESSION: Normal cervical spine radiographs -------- -Chest ray Date of service: 04/21/2018 HISTORY: medical clearance COMPARISON: 02/20/2018 TECHNIQUE: Chest PA and lateral FINDINGS: LUNGS: No active pulmonary disease. PLEURA: No significant pleural effusion identified. No pneumothorax apparent. CARDIOVASCULAR: No aortic atherosclerotic calcification present. Normal cardiac size. No pulmonary vascular congestion. OSSEOUS STRUCTURES: No significant abnormalities. VISUALIZED UPPER ABDOMEN: Normal. OTHER FINDINGS: None. IMPRESSION: No active disease. Echo Vasc Tech: Radiologist - PA / ACCOUNT MANAGEMENT SPECIALIST / Resident Statement / has reviewed & agrees with the documentation as recorded. Disposition/Present on Arrival - Present on Arrival Any Indicators Present on Arrival: No History of DVT/PE: No History of Uncontrolled Diabetes: No Urinary Catheter: No History of Decub. Ulcer: No History Surgical Site Infection Following: None - Disposition Have Diagnosis and Disposition been Completed?: Yes Diagnosis: Chronic neck pain Disposition: HOME/ ROUTINE Disposition Time: 11:16 Patient Plan: Discharge Patient Problems: Current Active Problems Problem Status Onset Chronic neck pain Acute Condition: IMPROVED Additional Instructions: -Discharge home with celebrex, flexeril, lidoderm patch, follow up with your own pmd and pain management/orthopedic within 2 days, return to the ER for any new or worsening signs or symptoms. Prescriptions: Celecoxib [CeleBREX] 200 mg PO DAILY PRN #14 cap PRN Reason: Other Cyclobenzaprine [Cyclobenzaprine HCl] 10 mg PO TID PRN #21 tab PRN Reason: Other Lidocaine 5% [Lidoderm] 1 patch TP DAILY PRN #14 patch PRN Reason: Other Referrals: Reji Rodriguez MD [Primary Care Provider] - Follow up with primary Fuad Burgess MD [Staff Provider] - Follow up with primary Mannie Ortez MD [Staff Provider] - Follow up with primary Forms: [employer] (Azeri)
[2018-04-21] MEDS ORDERED: Oxycodone/Acetaminophen 5/325 mg Tab PO STA (09:56)
[2018-04-21 11:17] VITALS: BP 140/92; PULSE 68; O2SAT 100
--- NOTE | 2018-04-21 11:23 | RAD ---
Date of service: 04/21/2018 HISTORY: medical clearance COMPARISON: 02/20/2018 TECHNIQUE: Chest PA and lateral FINDINGS: LUNGS: No active pulmonary disease. PLEURA: No significant pleural effusion identified. No pneumothorax apparent. CARDIOVASCULAR: No aortic atherosclerotic calcification present. Normal cardiac size. No pulmonary vascular congestion. OSSEOUS STRUCTURES: No significant abnormalities. VISUALIZED UPPER ABDOMEN: Normal. OTHER FINDINGS: None. IMPRESSION: No active disease.
--- NOTE | 2018-04-21 11:25 | RAD ---
Date of service: 04/21/2018 PROCEDURE: Cervical Spine Radiographs. HISTORY: Pain. COMPARISON: None available. FINDINGS: BONES: Alignment maintained. No fracture. Dens Intact. DISC SPACES: Normal. SOFT TISSUES: Normal. No prevertebral soft tissue swelling. OTHER FINDINGS: None. IMPRESSION: Normal cervical spine radiographs
== END 2018-04-21 11:35 | disposition home or self-care (01) ==
LOC: ED 08:24
DX: G89.29 Other chronic pain (principal); M54.2 Cervicalgia; E11.9 Type 2 diabetes mellitus without complications; I10 Essential (primary) hypertension; F17.210 Nicotine dependence, cigarettes, uncomplicated
CPT/HCPCS: 71046; 72050; 81025; 96372; 99284; J1885